=== PATIENT | female | born 1935 | race Caucasian/White ===

== ENCOUNTER 2016-06-14 09:41 | Emergency (ER) | payer MEDICARE, OTHER ==
--- NOTE | 2016-06-14 10:55 | ER Document Report ---
ED Skin Rash/Insect Bite/Abscs - General Chief Complaint: Skin Problem Stated Complaint: POSSIBLE ABSCESS RIGHT FINGER Information source: Patient Notes: 80-year-old female who presents today with the onset around 2-3 days ago of noting some redness to the dorsal aspect of the left index finger with a small circular "blister" present. She also believe she has some redness and irritation to her left back. Patient denies any pain, nausea, vomiting, fevers , congestion, recent illness, or other review of systems. Patient states she does have an "immune deficiency" that she receives monthly intravenous immunoglobulin for in [place]. She states she does not know what this immunodeficiency is. She also has a history of high blood pressure, diabetes, and cardiac stents. Patient denies any change or new medications. She denies a history of skin disorders. TRAVEL OUTSIDE OF THE [place] IN LAST 30 DAYS: No - HPI Patient complains to provider of: Skin rash/lesion Onset: Other - See above Onset/Duration: Gradual Quality of pain: No pain Severity: Mild Pain Level: Denies Skin Character: Other - See above Quality of rash: No: Itchy, Painful, Burning Identify cause: No Similar symptoms previously: No Recently seen / treated by doctor: No - Related Data Allergies/Adverse Reactions: codeine [Codeine] Allergy (Verified 06/14/16 09:47) Penicillins Allergy (Verified 06/14/16 09:47) Past Medical History - General Information source: Patient - Social History Smoking Status: Never Smoker Chew tobacco use (# tins/day): No Frequency of alcohol use: None Drug Abuse: None Family History: Arthritis, CAD, CVA, DM, Hyperlipidemia, Hypertension, Malignancy - Past Medical History Cardiac Medical History: Reports: Hx Coronary Artery Disease, Hx Hypercholesterolemia, Hx Hypertension Pulmonary Medical History: Reports: Hx Bronchitis, Hx Pneumonia Neurological Medical History: Reports: Hx Migraine Endocrine Medical History: Reports: Hx Diabetes Mellitus Type 2 Renal/ Medical History: Denies: Hx Peritoneal Dialysis Malignancy Medical History: Denies: Hx Leukemia GI Medical History: Reports: Hx Gastroesophageal Reflux Disease. Denies: Hx Hepatitis, Hx Hiatal Hernia, Hx Ulcer Musculoskeltal Medical History: Denies Hx Arthritis, Reports Hx Musculoskeletal Deformity, Reports Hx Musculoskeletal Trauma Psychiatric Medical History: Reports: Hx Depression Infectious Medical History: Denies: Hx Hepatitis, Hx HIV Past Surgical History: Reports: Hx Appendectomy, Hx Cardiac Catheterization, Hx Cholecystectomy, Hx Coronary Stent - 2 stents mar 2012, Hx Hysterectomy, Hx Open Heart Surgery - STENTS, Hx Orthopedic Surgery - bilat knee replacement, back surgery 6, Hx Tonsillectomy. Denies: Hx Mastectomy, Hx Pacemaker - Immunizations Hx Diphtheria, Pertussis, Tetanus Vaccination: No Hx Pneumococcal Vaccination: 02/24/11 Review of Systems - Review of Systems Constitutional: denies: Fever Cardiovascular: denies: Chest pain Respiratory: denies: Short of breath Gastrointestinal: denies: Diarrhea, Vomiting Musculoskeletal: denies: Leg swelling Neurological/Psychological: Other - no slurred speech -: Yes All other systems reviewed and negative Physical Exam - Vital signs Vitals: Temp Pulse Resp BP Pulse Ox 97.7 F 64 18 170/58 H 99 06/14/16 09:48 06/14/16 09:48 06/14/16 09:48 06/14/16 09:48 06/14/16 09:48 Notes: Reviewed vital signs and nursing note as charted by RN. CONSTITUTIONAL: Alert and oriented and responds appropriately to questions. Well -appearing; well-nourished EYES: PERRL; Conjunctivae clear, sclerae non-icteric ENT: Normal nose; no rhinorrhea; moist mucous membranes; lips, tongue, and pharynx without lesions noted NECK: Supple without meningismus; non-tender; no cervical lymphadenopathy, no masses CARD: Regular rate and rhythm; no murmurs, no clicks, no rubs, no gallops; symmetric distal pulses RESP: Normal chest excursion without splinting or tachypnea; breath sounds clear and equal bilaterally; no wheezes, no rhonchi, no rales ABD/GI: Normal bowel sounds; non-distended; soft, non-tender BACK: The back appears normal and is non-tender to palpation, there is no CVA tenderness EXT: Normal ROM in all joints; non-tender to palpation; no cyanosis, no effusions, no edema SKIN: Patient has some erythema with a 1.5 x 1 cm red nontender nonfluctuant blister like lesion to the dorsum of the index finger of the right hand. Full range of motion. Neurovascularly intact distally. Patient has a small circular patchy nontender area of erythema to the left lateral back. NEURO: Moves all extremities equally; Motor and sensory function intact PSYCH: The patient's mood and manner are appropriate. Grooming and personal hygiene are appropriate. Course - Re-evaluation Re-evalutation: 06/14/16 10:55 Given the history and physical examination, I will obtain a CBC, chemistry, and attempt to touch base with the patient's primary care physician. Given that the blister to the finger is nontender and nonfluctuant I do not believe incision and drainage is indicated at this time. After laboratory work has been returned, I will attempt to call the patient's oncologist who provides the intravenous immunoglobulin, Dr. Chavez to find out what the patient's immunodeficiency is exactly, to help and my disposition as well as to increase the patient's self awareness of her medical conditions. 06/14/16 10:57 Reviewing the patient's history on previous examinations it appears the patient has a history of stage III chronic kidney disease, thrombocytopenia, and does take Plavix. 06/14/16 12:35 Labs as recorded. White count, platelets, calcium, and creatinine appear to be around baseline. 06/14/16 12:48 I called and spoken directly to Dr. Man the oncologist financial services consultant for Dr. Chavez. I've explained the full history and physical examination, laboratory values, white blood cell count, glucose, calcium, creatinine, and platelets. 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 He states that the patient received last immunoglobulin on May 20. He states that, and variable immunodeficiency can at times cause possible rash. He is advised me to start the patient on Keflex, provide strict return precautions, have the patient follow-up with the oncology service and if there is no resolution or worsening of the rash, they will refer the patient to dermatology. No change in exam. I have provided a short 500 mL bolus of intravenous fluid and we'll discharge the patient home with strict return precautions, Keflex, and follow-up with her oncologist and primary care physician. 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 Please write this down and keep this with you to help future visits. Please take the antibiotics as prescribed. Please come back immediately with any fevers, worsening rash, pain, vomiting, or any other acute problems. Please make sure that you follow-up with your oncologist for reassessment next week as we have discussed and have helped expedite for you. Prescriptions: Cephalexin Monohydrate [Keflex 500 mg Capsule] 500 mg PO TID #30 capsule
[2016-06-14 11:03] LABS: ABSOLUTE EOSINOPHILS # (AUTO) 0.2 10^3/uL (0.0-0.6); ABSOLUTE LYMPHOCYTES (AUTO) 0.6 10^3/uL (0.5-4.7); ABSOLUTE MONOCYTES (AUTO) 0.4 10^3/uL (0.1-1.4); ABSOLUTE NEUT (AUTO) 2.2 10^3/uL (1.7-8.2); BASOPHILS % (AUTO) 1.3 % (0-2); EOSINOPHILS % (AUTO) 4.9 % (0-6); HEMATOCRIT 34.8 % (36.0-47.0); HEMOGLOBIN 11.8 g/dL (12.0-15.5); HGB HCT DIFFERENCE 0.6; LYMPHOCYTES % (AUTO) 17.6 % (13-45); MEAN CORPUSCULAR HEMOGLOBIN 30.8 pg (27.0-33.4); MEAN CORPUSCULAR HGB CONC 33.8 g/dL (32.0-36.0); MEAN CORPUSCULAR VOLUME 91 fl (80-97); MONOCYTES % (AUTO) 11.7 % (3-13); RED BLOOD COUNT 3.82 10^6/uL (3.72-5.28); RED CELL DISTRIBUTION WIDTH 13.5 % (11.5-14.0); SEGMENTED NEUTROPHILS % (AUTO) 64.5 % (42-78); WHITE BLOOD COUNT 3.4 10^3/uL (4.0-10.5)
[2016-06-14 11:19] LABS: ANION GAP 13 (5-19); BLOOD UREA NITROGEN 26 mg/dL (7-20); CALCIUM 10.3 mg/dL (8.4-10.2); CARBON DIOXIDE 21 mmol/L (22-30); CHLORIDE 110 mmol/L (98-107); CREATININE RESULT 1.42 mg/dL (0.52-1.25); GLUCOSE 268 mg/dL (75-110); POTASSIUM 4.6 mmol/L (3.6-5.0); SODIUM 143.6 mmol/L (137-145)
[2016-06-14] MEDS ORDERED: NORMAL SALINE 1000 ML 1,000 ML IV ONE (12:40)
[2016-06-14] MEDS ORDERED: CEPHALEXIN 500 MG CAPSULE PO ONE (12:58)
[2016-06-14 14:57] VITALS: BP 174/61
== END 2016-06-14 14:57 | disposition home or self-care (01) ==
LOC: ER 09:41
DX: R21 Rash and other nonspecific skin eruption (principal); I25.10 Atherosclerotic heart disease of native coronary artery without angina pectoris; E78.00 Pure hypercholesterolemia, unspecified; I10 Essential (primary) hypertension; E11.9 Type 2 diabetes mellitus without complications; K21.9 Gastro-esophageal reflux disease without esophagitis; Z88.6 Allergy status to analgesic agent; Z88.0 Allergy status to penicillin; Z90.49 Acquired absence of other specified parts of digestive tract; Z90.710 Acquired absence of both cervix and uterus; Z96.653 Presence of artificial knee joint, bilateral
CPT/HCPCS: 99283; 36415; 85025; 80048; A9270; J7030

== ENCOUNTER 2016-06-26 10:12 | Observation (INO) | payer MEDICARE, OTHER ==
[2016-06-26] MEDS ORDERED: NORMAL SALINE 1000 ML 500 ML IV ONE (10:27)
--- NOTE | 2016-06-26 10:46 | ER Document Report ---
ED Medical Screen (RME) - General Chief Complaint: Weakness Stated Complaint: WEAKNESS TRAVEL OUTSIDE OF THE [place] IN LAST 30 DAYS: No - HPI Patient complains to provider of: weakness Notes: 06/26/16 10:45 Patient drove herself to the ER today complaining of generalized weakness feeling shaky along with multiple other complaints. Patient states she did not take anything for blood pressure medications nor did she checked her sugar this morning. Patient states symptoms all started as morning upon awaking. Concern after she ate cereal and it did not resolve. Patient ambulatory here in our knee. 06/26/16 10:46 - Related Data Allergies/Adverse Reactions: codeine [Codeine] Allergy (Verified 06/26/16 10:16) Penicillins Allergy (Verified 06/26/16 10:16) Past Medical History - Past Medical History Cardiac Medical History: Reports: Hx Coronary Artery Disease, Hx Hypercholesterolemia, Hx Hypertension Pulmonary Medical History: Reports: Hx Bronchitis, Hx Pneumonia Neurological Medical History: Reports: Hx Migraine Endocrine Medical History: Reports: Hx Diabetes Mellitus Type 2 Renal/ Medical History: Denies: Hx Peritoneal Dialysis Malignancy Medical History: Denies: Hx Leukemia GI Medical History: Reports: Hx Gastroesophageal Reflux Disease. Denies: Hx Hepatitis, Hx Hiatal Hernia, Hx Ulcer Musculoskeltal Medical History: Denies Hx Arthritis, Reports Hx Musculoskeletal Deformity, Reports Hx Musculoskeletal Trauma Psychiatric Medical History: Reports: Hx Depression Infectious Medical History: Denies: Hx Hepatitis, Hx HIV Past Surgical History: Reports: Hx Appendectomy, Hx Cardiac Catheterization, Hx Cholecystectomy, Hx Coronary Stent - 2 stents mar 2012, Hx Hysterectomy, Hx Open Heart Surgery - STENTS, Hx Orthopedic Surgery - bilat knee replacement, back surgery 6, Hx Tonsillectomy. Denies: Hx Mastectomy, Hx Pacemaker - Immunizations Hx Diphtheria, Pertussis, Tetanus Vaccination: No Review of Systems - Review of Systems Constitutional: Weakness Physical Exam - Vital signs Vitals: Temp Pulse Resp BP Pulse Ox 97.6 F 71 20 219/72 H 97 06/26/16 10:18 06/26/16 10:18 06/26/16 10:18 06/26/16 10:18 06/26/16 10:18 - Cardiovascular Rhythm: Regular Heart sounds: Normal auscultation Course - Vital Signs Vital signs: Temp Pulse Resp BP Pulse Ox 97.6 F 71 20 219/72 H 97 06/26/16 10:18 06/26/16 10:18 06/26/16 10:18 06/26/16 10:18 06/26/16 10:18
[2016-06-26 11:05] LABS: ABSOLUTE EOSINOPHILS # (AUTO) 0.1 10^3/uL (0.0-0.6); ABSOLUTE LYMPHOCYTES (AUTO) 0.8 10^3/uL (0.5-4.7); ABSOLUTE MONOCYTES (AUTO) 0.3 10^3/uL (0.1-1.4); ABSOLUTE NEUT (AUTO) 2.1 10^3/uL (1.7-8.2); BASOPHILS % (AUTO) 0.8 % (0-2); EOSINOPHILS % (AUTO) 2.9 % (0-6); HEMATOCRIT 35.4 % (36.0-47.0); HEMOGLOBIN 11.9 g/dL (12.0-15.5); HGB HCT DIFFERENCE 0.3; LYMPHOCYTES % (AUTO) 23.2 % (13-45); MEAN CORPUSCULAR HEMOGLOBIN 30.7 pg (27.0-33.4); MEAN CORPUSCULAR HGB CONC 33.5 g/dL (32.0-36.0); MEAN CORPUSCULAR VOLUME 92 fl (80-97); MONOCYTES % (AUTO) 10.4 % (3-13); RED BLOOD COUNT 3.87 10^6/uL (3.72-5.28); RED CELL DISTRIBUTION WIDTH 13.2 % (11.5-14.0); SEGMENTED NEUTROPHILS % (AUTO) 62.7 % (42-78); WHITE BLOOD COUNT 3.3 10^3/uL (4.0-10.5)
[2016-06-26 11:28] LABS: PROTHROMBIN TIME 12.8 SEC (11.4-15.4)
[2016-06-26 11:28] LABS: APPEARANCE,URINE CLEAR; BILIRUBIN,URINE NEGATIVE (NEGATIVE); GLUCOSE, URINE >=500 mg/dL (NEGATIVE); KETONES,URINE NEGATIVE (NEGATIVE); LEUKOCYTE ESTERASE,URINE NEGATIVE (NEGATIVE); NITRITE,URINE NEGATIVE (NEGATIVE); PROTEIN,URINE 100 mg/dL (NEGATIVE); URINE SPECIFIC GRAVITY 1.013; UROBILINOGEN,URINE NEGATIVE mg/dL (<2.0)
[2016-06-26 11:29] LABS: ALANINE AMINOTRANSFERASE 30 U/L (9-52); ALBUMIN 4.1 g/dL (3.5-5.0); ALKALINE PHOSPHATASE 147 U/L (38-126); ANION GAP 15 (5-19); ASPARTATE AMINO TRANSFERASE 26 U/L (14-36); BILIRUBIN,DIRECT 0.3 mg/dL (0.0-0.4); BILIRUBIN,TOTAL 0.5 mg/dL (0.2-1.3); BLOOD UREA NITROGEN 31 mg/dL (7-20); CALCIUM 10.6 mg/dL (8.4-10.2); CARBON DIOXIDE 23 mmol/L (22-30); CHLORIDE 105 mmol/L (98-107); CREATINE KINASE 64 U/L (30-135); CREATININE RESULT 1.09 mg/dL (0.52-1.25); GLUCOSE 379 mg/dL (75-110); MAGNESIUM 1.3 mg/dL (1.6-2.3); POTASSIUM 4.6 mmol/L (3.6-5.0); SODIUM 142.5 mmol/L (137-145); TOTAL PROTEIN 7.1 g/dL (6.3-8.2)
[2016-06-26 11:41] LABS: CREATINE KINASE MB 0.81 ng/mL (<4.55)
[2016-06-26 11:43] LABS: TROPONIN I < 0.012 ng/mL
[2016-06-26] MEDS ORDERED: MAGNESIUM OXIDE 400 MG TABLET PO ONE (11:54)
--- NOTE | 2016-06-26 11:56 | ER Document Report ---
ED Cardiac - General Mode of Arrival: Ambulatory Information source: Patient TRAVEL OUTSIDE OF THE [place] 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 Patient reports that she is having no pain currently. The pain is not exacerbated with movement. Patient additionally complains of shortness of breath and nausea (started at 0800 and has since passed), but denies cough or fever. Patient denies being around anyone sick. Patient took her medication this morning. 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 Nixon at [facility]. Patient reports no recent changes in her medication. As per old records, patient has Common Variable Immune Deficiency and receives IVIG treatment every month by Dr. Wilder at [facility]. (DANA VELEZ) - Related Data Allergies/Adverse Reactions: codeine [Codeine] Allergy (Verified 06/26/16 10:16) Penicillins Allergy (Verified 06/26/16 10:16) Home Medications: Current Home Medications Acetaminophen [Tylenol Arthritis] 1,300 mg PO TID 06/26/16 [History] Amlodipine Besylate [Norvasc 5 mg Tablet] 5 mg PO QAM 06/26/16 [History] Aspirin [Ecotrin 81 mg EC Tablet] 81 mg PO QAM 06/26/16 [History] Atenolol [Tenormin] 100 mg PO QAM 06/26/16 [History] Atorvastatin Calcium [Lipitor 40 mg Tablet] 40 mg PO QHS 06/26/16 [History] Clopidogrel Bisulfate [Plavix 75 mg Tablet] 75 mg PO QAM 06/26/16 [History] Fenofibrate Nanocrystallized [Fenofibrate] 145 mg PO QHS 06/26/16 [History] Glimepiride [Amaryl 4 mg Tablet] 4 mg PO QAM 06/26/16 [History] Hydrochlorothiazide [Hydrodiuril 25 mg Tablet] 25 mg PO QAM 06/26/16 [History] Lisinopril [Prinivil] 20 mg PO QAM 06/26/16 [History] Nitroglycerin [Nitrostat] 0.4 mg SL Q5MP PRN 06/26/16 [History] Pantoprazole Sodium [Protonix] 40 mg PO QAM 06/26/16 [History] Past Medical History - General Information source: Patient, [facility] - Social History Smoking Status: Never Smoker Family History: Arthritis, CAD, CVA, DM, Hyperlipidemia, Hypertension, Malignancy Patient has suicidal ideation: No Patient has homicidal ideation: No - Past Medical History Cardiac Medical History: Reports: Hx Coronary Artery Disease, Hx Hypercholesterolemia, Hx Hypertension Pulmonary Medical History: Reports: Hx Bronchitis, Hx Pneumonia Neurological Medical History: Reports: Hx Migraine Endocrine Medical History: Reports: Hx Diabetes Mellitus Type 2 - diet controlled Renal/ Medical History: Denies: Hx Peritoneal Dialysis Malignancy Medical History: Denies: Hx Leukemia GI Medical History: Reports: Hx Gastroesophageal Reflux Disease. Denies: Hx Hepatitis, Hx Hiatal Hernia, Hx Ulcer Musculoskeltal Medical History: Denies Hx Arthritis, Reports Hx Musculoskeletal Deformity, Reports Hx Musculoskeletal Trauma Psychiatric Medical History: Reports: Hx Depression Past Surgical History: Reports: Hx Appendectomy, Hx Cardiac Catheterization - stent x 2, Hx Cholecystectomy, Hx Coronary Stent - 2 stents mar 2012, Hx Hysterectomy, Hx Open Heart Surgery - STENTS, Hx Orthopedic Surgery - bilat knee replacement, back surgery 6, Hx Tonsillectomy - Immunizations Hx Diphtheria, Pertussis, Tetanus Vaccination: No Hx Pneumococcal Vaccination: 02/24/11 <DANA VELEZ - Last Filed: 06/26/16 13:05> <PRISCILLA PADGETT - Last Filed: 06/26/16 18:18> - Medical History Notes: History of Common Variable Immune Deficiency (DANA VELEZ) Review of Systems - Review of Systems Constitutional: No symptoms reported. denies: Fever EENT: No symptoms reported Cardiovascular: See HPI, Chest pain - left chest that radiates up left neck Respiratory: See HPI, Short of breath. denies: Cough Gastrointestinal: See HPI, Nausea - this morning, not currently Genitourinary: No symptoms reported Female Genitourinary: No symptoms reported Musculoskeletal: No symptoms reported Skin: No symptoms reported Hematologic/Lymphatic: No symptoms reported Neurological/Psychological: No symptoms reported -: Yes All other systems reviewed and negative <DANA VELEZ - Last Filed: 06/26/16 13:05> Physical Exam - Vital signs Interpretation: Hypertensive - General General appearance: Alert In distress: None - HEENT Head: Normocephalic, Atraumatic Eyes: Normal Extraocular movements intact: Yes Pupils: PERRL - Respiratory Respiratory status: No respiratory distress Breath sounds: Normal - Cardiovascular Rhythm: Regular Heart sounds: Normal auscultation - Abdominal Inspection: Normal Distension: No distension Tenderness: Nontender - Back Back: Normal - Extremities General upper extremity: Normal inspection, Normal ROM General lower extremity: Normal inspection, Normal ROM - Neurological Neuro grossly intact: Yes Cognition: Normal Orientation: AAOx4 [place] Coma Scale Eye Opening: Spontaneous [place] Coma Scale Verbal: Oriented [place] Coma Scale Motor: Obeys Commands Maria Luisa Coma Scale Total: 15 Speech: Normal - Psychological Associated symptoms: Normal affect, Normal mood - Skin Skin Temperature: Warm Skin Moisture: Dry Skin Color: Normal <ROSIEDANA - Last Filed: 06/26/16 13:05> Course - Laboratory Result Diagrams: 06/26/16 10:40 06/26/16 10:40 - Consults Dr. Richard Time consulted: 11:51 Alon Ventura Time consulted: 11:53 <VELEZDANA - Last Filed: 06/26/16 13:05> - Laboratory Result Diagrams: 06/26/16 10:40 06/26/16 10:40 <PRISCILLA PADGETT - Last Filed: 06/26/16 18:18> - Re-evaluation Re-evalutation: 06/26/16 Patient is an 80-year-old female with a history of coronary artery disease who comes in with some chest pain and radiation to her neck and arm that has since resolved. Troponin is negative. EKG with no acute changes. Patient will be referred to the hospitalist service for observation. Understands and agrees with this plan. Has taken aspirin today. Stable time of admission. (PRISCILLA PADGETT) - Vital Signs Vital signs: Temp Pulse Resp BP Pulse Ox 97.5 F 64 20 184/63 H 100 06/26/16 15:59 06/26/16 15:59 06/26/16 15:59 06/26/16 15:59 06/26/16 15:59 - Laboratory Laboratory results interpreted by me: 06/26/16 06/26/16 06/26/16 10:35 10:40 10:40 WBC 3.3 L Hgb 11.9 L Hct 35.4 L Plt Count 87 L BUN 31 H Est GFR ( Amer) 58 L Est GFR (Non-Af Amer) 48 L Glucose 379 H POC Glucose 364 H Calcium 10.6 H Magnesium 1.3 L Alkaline Phosphatase 147 H Urine Protein Urine Glucose (UA) 06/26/16 11:01 WBC Hgb Hct Plt Count BUN Est GFR ( Amer) Est GFR (Non-Af Amer) Glucose POC Glucose Calcium Magnesium Alkaline Phosphatase Urine Protein 100 H Urine Glucose (UA) >=500 H - Consults Dr. Richard Reason for consultation: 06/26/16 11:51 Patient was discussed with Dr. Richard and told to contact Alon Ventura. (DANA VELEZ) Alon Ventura Reason for consultation: 06/26/16 11:53 Patient was discussed with Alon Ventura and agrees to admit the patient to telemetry observation. (DANA VELEZ) Discharge <DANA VELEZ - Last Filed: 06/26/16 13:05> - Discharge Admitting Provider: Marcie Ventura Unit Admitted: Telemetry <PRISCILLA PADGETT - Last Filed: 06/26/16 18:18> - Discharge Clinical Impression: Chest pain Qualifiers: Chest pain type: unspecified Qualified Code(s): R07.9 - Chest pain, unspecified Condition: Stable Disposition: ADMITTED OBSERVATION Scribe Attestation: 06/26/16 18:18 I personally performed the services described in the documentation, reviewed and edited the documentation which was dictated to the scribe in my presence, and it accurately records my words and actions. (PRISCILLA PDAGETT) Scribe Documentation - Scribe Written by Scribe:: Yenifer Briceño, 06/26/2016 1305 acting as scribe for :: Andrew <DANA VELEZ - Last Filed: 06/26/16 13:05>
[2016-06-26] MEDS ORDERED: DEXTROSE 40% GEL 15 GM TUBE PO PRN ×2 (12:17)
[2016-06-26] MEDS ORDERED: GLUCAGON,HUMAN RECOMB 1 MG INJ IM PRN (12:17)
[2016-06-26] MEDS ORDERED: DEXTROSE 50%-WATER 25 GM/50 ML DISP.SYRIN IV PRN ×2 (12:17)
[2016-06-26] MEDS ORDERED: NITROGLYCERIN 0.4 MG/TAB 25 TAB/BOTTLE SL PRN (12:20)
[2016-06-26] MEDS ORDERED: (PENDING PHARMACY ID) (Lisinopril [Prinivil 20 Mg Tablet] 20 MG) PO SCH (12:30)
[2016-06-26] MEDS ORDERED: ATENOLOL 100 MG PO SCH (12:30)
[2016-06-26] MEDS ORDERED: AMLODIPINE BESYLATE 5 MG TABLET PO ONE (13:00)
--- NOTE | 2016-06-26 13:16 | PDOC H&P ---
History of Present Illness Admission Date/PCP: 06/26/2016 [facility] Outpatient kaiawhina: Dr. Jaya Nixon Patient complains of: Chest discomfort History of Present Illness: TROY COOK is a 80 year old female with a past medical history of coronary artery disease that is well known to the hospitalist service. The patient is followed by Dr. Jaya Nixon cardiology [facility]. The patient drove herself to the emergency department today complaining of generalized weakness feeling shaky along with multiple other complaints. Patient states she did not take anything for blood pressure medications nor did she checked her sugar this morning. Patient states symptoms all started as morning upon awaking. Concern after she ate cereal and it did not resolve. Patient ambulatory here in the ED. the patient notes anxiety around her 's from myocardial infarction 5 years ago. The patient reiterates that she lives alone. MEDICATIONS: The medications listed in this document may have been auto- populated from previous contact and may not been verified or reconciled. This may not be an accurate reflection of the patient's home medication(s); however, authors are unable to edit or delete the medications listed in this document as "home medications". Past Medical History Cardiac Medical History: Reports: Coronary Artery Disease, Hyperlipidema, Hypertension Pulmonary Medical History: Reports: Bronchitis, Pneumonia Neurological Medical History: Reports: Migraine Endocrine Medical History: Reports: Diabetes Mellitus Type 2 - diet controlled GI Medical History: Reports: Gastroesophageal Reflux Disease Psychiatric Medical History: Reports: Depression Hematology: Reports: Anemia Past Surgical History Past Surgical History: Reports: Appendectomy, Cardiac Catheterization - stent x 2, Cholecystectomy, Coronary Stent - 2 stents mar 2012, Hysterectomy, Orthopedic Surgery - bilat knee replacement, back surgery 6, Tonsillectomy Social History Information Source: Patient Occupation: Retrieved Lives with: Alone Smoking Status: Never Smoker Frequency of Alcohol Use: None Hx Recreational Drug Use: No Drugs: None Hx Prescription Drug Abuse: No - Advance Directive Resuscitation Status: Full Code Surrogate healthcare decision maker:: Son Family History Family History: Arthritis, CAD, CVA, DM, Hyperlipidemia, Hypertension, Malignancy Parental Family History Reviewed: Yes Children Family History Reviewed: Yes Sibling(s) Family History Reviewed.: Yes Medication/Allergy Allergies/Adverse Reactions: codeine [Codeine] Allergy (Verified 06/26/16 10:16) Penicillins Allergy (Verified 06/26/16 10:16) Physical Exam Vital Signs: Temp Pulse Resp BP Pulse Ox 97.6 F 71 20 219/72 H 98 06/26/16 10:18 06/26/16 10:18 06/26/16 10:18 06/26/16 10:18 06/26/16 11:12 Intake & Output 06/24/16 06/25/16 06/26/16 23:59 23:59 23:59 Weight 81.6 kg General appearance: PRESENT: no acute distress, cooperative, well-developed, well-nourished Head exam: PRESENT: atraumatic, normocephalic Eye exam: PRESENT: conjunctiva pink, EOMI, PERRLA. ABSENT: scleral icterus Ear exam: PRESENT: normal external ear exam Mouth exam: PRESENT: moist, tongue midline Neck exam: ABSENT: carotid bruit, JVD, lymphadenopathy, thyromegaly Respiratory exam: PRESENT: clear to auscultation kiko, symmetrical, unlabored. ABSENT: rales, rhonchi, tachypnea, wheezes Cardiovascular exam: PRESENT: RRR. ABSENT: diastolic murmur, rubs, systolic murmur Pulses: PRESENT: normal dorsalis pedis pul Vascular exam: PRESENT: normal capillary refill GI/Abdominal exam: PRESENT: normal bowel sounds, soft. ABSENT: distended, guarding, mass, organolmegaly, rebound, tenderness Rectal exam: PRESENT: deferred Extremities exam: PRESENT: full ROM. ABSENT: calf tenderness, clubbing, pedal edema Neurological exam: PRESENT: alert, awake, oriented to person, oriented to place , oriented to time, oriented to situation, CN II-XII grossly intact. ABSENT: motor sensory deficit Psychiatric exam: PRESENT: appropriate affect, normal mood. ABSENT: homicidal ideation, suicidal ideation Skin exam: PRESENT: dry, intact, warm. ABSENT: cyanosis, rash Results Laboratory Results: 06/26/16 10:40 06/26/16 10:40 06/26/16 06/26/16 06/26/16 10:40 10:40 10:40 WBC 3.3 L RBC 3.87 Hgb 11.9 L Hct 35.4 L MCV 92 MCH 30.7 MCHC 33.5 RDW 13.2 Plt Count 87 L Seg Neutrophils % 62.7 Lymphocytes % 23.2 Monocytes % 10.4 Eosinophils % 2.9 Basophils % 0.8 Absolute Neutrophils 2.1 Absolute Lymphocytes 0.8 Absolute Monocytes 0.3 Absolute Eosinophils 0.1 Absolute Basophils 0.0 Sodium 142.5 Potassium 4.6 Chloride 105 Carbon Dioxide 23 Anion Gap 15 BUN 31 H Creatinine 1.09 Est GFR ( Amer) 58 L Est GFR (Non-Af Amer) 48 L Glucose 379 H Calcium 10.6 H Magnesium 1.3 L Total Bilirubin 0.5 AST 26 ALT 30 Alkaline Phosphatase 147 H Total Protein 7.1 Albumin 4.1 TSH 1.59 Urine Color Urine Appearance Urine pH Ur Specific [place] Urine Protein Urine Glucose (UA) Urine Ketones Urine Blood Urine Nitrite Ur Leukocyte Esterase Urine WBC (Auto) Urine RBC (Auto) 06/26/16 11:01 WBC RBC Hgb Hct MCV MCH MCHC RDW Plt Count Seg Neutrophils % Lymphocytes % Monocytes % Eosinophils % Basophils % Absolute Neutrophils Absolute Lymphocytes Absolute Monocytes Absolute Eosinophils Absolute Basophils Sodium Potassium Chloride Carbon Dioxide Anion Gap BUN Creatinine Est GFR ( Amer) Est GFR (Non-Af Amer) Glucose Calcium Magnesium Total Bilirubin AST ALT Alkaline Phosphatase Total Protein Albumin TSH Urine Color STRAW Urine Appearance CLEAR Urine pH 6.0 Ur Specific [place] 1.013 Urine Protein 100 H Urine Glucose (UA) >=500 H Urine Ketones NEGATIVE Urine Blood NEGATIVE Urine Nitrite NEGATIVE Ur Leukocyte Esterase NEGATIVE Urine WBC (Auto) 0 Urine RBC (Auto) 0 06/26/16 06/26/16 10:40 10:40 Creatine Kinase 64 CK-MB (CK-2) 0.81 Troponin I < 0.012 Impressions: Chest X-Ray 06/26/16 10:26 IMPRESSION: No acute cardiopulmonary findings. Head CT 06/26/16 10:27 IMPRESSION: No acute or suspicious findings. Assessment & Plan - Diagnosis (1) Chest pain Qualifiers: Chest pain type: unspecified Qualified Code(s): R07.9 - Chest pain, unspecified Is this a current diagnosis for this admission?: YesPlan: Will observe the patient continues telemetry unit, obtain serial cardiac enzymes , repeat EKG, and obtain lipid panel in the a.m. will consult with the patient' s outpatient kaiawhina. (2) Coronary artery disease Qualifiers: Coronary Disease-Associated Artery/Lesion type: [place] artery [place] vs. transplanted heart: [place] heart Associated angina: without angina Qualified Code(s): I25.10 - Atherosclerotic heart disease of [place] coronary artery without angina pectoris Is this a current diagnosis for this admission?: YesPlan: Will continue home medications. (3) Hypertension Qualifiers: Hypertension type: unspecified secondary hypertension Qualified Code(s) : I15.9 - Secondary hypertension, unspecified; I15 - Secondary hypertension Is this a current diagnosis for this admission?: YesPlan: Pressures are significantly elevated will resume the patient's home blood pressure medications most likely just an element of rebounding. (4) Diabetes mellitus type 2 in nonobese Is this a current diagnosis for this admission?: YesPlan: Will resume home medications plus sliding scale coverage (5) CKD (chronic kidney disease), stage III Is this a current diagnosis for this admission?: Yes (6) Stented coronary artery Is this a current diagnosis for this admission?: Yes (7) Thrombocytopenia Is this a current diagnosis for this admission?: Yes (8) Generalized anxiety disorder Is this a current diagnosis for this admission?: Yes (9) Hyperlipidemia Qualifiers: Hyperlipidemia type: pure hypercholesterolemia Qualified Code(s): E78.00 - Pure hypercholesterolemia, unspecified; E78.0 - Pure hypercholesterolemia Is this a current diagnosis for this admission?: Yes - Time Time Spent: 50 to 70 Minutes Medications reviewed and adjusted accordingly: Yes Anticipated discharge: Home Within: within 24 hours Disposition: The patient is a full code. Pending patient's symptomatology and diagnostic findings will reevaluate in the a.m.
[2016-06-26] MEDS ORDERED: HYDROCHLOROTHIAZIDE 25 MG TABLET PO ONE (13:30)
[2016-06-26] MEDS: HEPARIN SOD (PORCINE) 5,000 UNIT/ML 1 ML SYRINGE SUBCUT SCH ×2 (14:50→22:01)
[2016-06-26] MEDS: INSULIN LISPRO 100 UNIT/ML 3 ML VIAL SUBCUT PRN (16:39)
[2016-06-26] MEDS ORDERED: ZOLPIDEM TARTRATE 5 MG TABLET PO PRN (18:54)
--- NOTE | 2016-06-26 21:09 | EKG REPORT ---
SEVERITY:- NORMAL ECG - SINUS RHYTHM : Confirmed by: Tressa Cantrell MD 26-Jun-2016 21:09:18
[2016-06-26] MEDS ORDERED: (PENDING PHARMACY ID) (Fenofibrate [Fenofibrate] 145 MG) PO SCH (22:00)
[2016-06-26] MEDS ORDERED: ACETAMINOPHEN 325 MG TABLET PO PRN (22:00)
[2016-06-26] MEDS ORDERED: FENOFIBRATE NANOCRYSTALLIZED 145 MG TABLET PO SCH (22:00)
[2016-06-26] MEDS ORDERED: ATORVASTATIN CALCIUM 40 MG TABLET PO SCH (22:00)
[2016-06-26 23:17] VITALS: BP 159/66
[2016-06-27] MEDS: HEPARIN SOD (PORCINE) 5,000 UNIT/ML 1 ML SYRINGE SUBCUT SCH (05:01)
[2016-06-27 05:10] LABS: CHOLESTEROL 145.57 mg/dL (0-200); Direct HDL 40 mg/dL (>40); TRIGLYCERIDES 307 mg/dL (<150)
[2016-06-27 05:21] LABS: DIRECT LDL 57 mg/dL (<100)
[2016-06-27 05:40] LABS: VLDL CHOLESTEROL 61.4 mg/dL (10-31)
[2016-06-27] MEDS: INSULIN LISPRO 100 UNIT/ML 3 ML VIAL SUBCUT PRN ×2 (07:47→07:51)
[2016-06-27] MEDS ORDERED: LANSOPRAZOLE 30 MG TAB.RAP.DR PO SCH (08:00)
[2016-06-27] MEDS ORDERED: GLIMEPIRIDE 1 MG TABLET PO SCH (08:00)
[2016-06-27] MEDS ORDERED: PANTOPRAZOLE SODIUM PO SCH (08:00)
[2016-06-27] MEDS ORDERED: GLIMEPIRIDE 4 MG TABLET PO SCH ×2 (08:00→16:00)
[2016-06-27] MEDS ORDERED: AMLODIPINE BESYLATE 5 MG TABLET PO SCH (10:00)
[2016-06-27] MEDS ORDERED: ATENOLOL 50 MG TABLET PO SCH (10:00)
[2016-06-27] MEDS ORDERED: CLOPIDOGREL BISULFATE 75 MG TABLET PO SCH (10:00)
[2016-06-27] MEDS ORDERED: HYDROCHLOROTHIAZIDE 25 MG TABLET PO SCH (10:00)
[2016-06-27] MEDS ORDERED: ASPIRIN 81 MG TABLET, CHEWABLE PO SCH (10:00)
[2016-06-27] MEDS ORDERED: LISINOPRIL 10 MG TABLET PO SCH (10:00)
--- NOTE | 2016-06-27 12:51 | EKG REPORT ---
SEVERITY:- ABNORMAL ECG - SINUS RHYTHM CONSIDER LEFT VENTRICULAR HYPERTROPHY BORDERLINE PROLONGED QT INTERVAL : Confirmed by: Tressa Cantrell MD 27-Jun-2016 12:50:24
--- NOTE | 2016-06-27 14:02 | PDOC DISCHARGE SUMMARY ---
General - Admit/Disc Date/PCP Admission Date/Primary Care Provider: 06/26/16 13:11 Outpatient pharmacy informatics specialist, Dr. Jaya Nixon Discharge Date: 06/27/16 - Discharge Diagnosis (1) Chest pain Is this a current diagnosis for this admission?: YesSummary: Secondary to #1 which is resolved (2) Coronary artery disease Is this a current diagnosis for this admission?: Yes (3) Generalized anxiety disorder Is this a current diagnosis for this admission?: Yes (4) Stented coronary artery Is this a current diagnosis for this admission?: Yes (5) Hypertension Is this a current diagnosis for this admission?: Yes (6) Diabetes mellitus type 2 in nonobese Is this a current diagnosis for this admission?: Yes (7) CKD (chronic kidney disease), stage III Is this a current diagnosis for this admission?: Yes (8) Thrombocytopenia Is this a current diagnosis for this admission?: Yes (9) Hyperlipidemia Is this a current diagnosis for this admission?: Yes - Additional Information Resuscitation Status: Full Code Discharge Diet: Cardiac Discharge Activity: Activity As Tolerated Home Medications: Acetaminophen [Tylenol Arthritis] 1,300 mg PO TID 06/26/16 Amlodipine Besylate [Norvasc 5 mg Tablet] 5 mg PO QAM 06/26/16 Aspirin [Ecotrin 81 mg EC Tablet] 81 mg PO QAM 06/26/16 Atenolol [Tenormin 100 mg Tablet] 100 mg PO QAM 06/26/16 Atorvastatin Calcium [Lipitor 40 mg Tablet] 40 mg PO QHS 06/26/16 Clopidogrel Bisulfate [Plavix 75 mg Tablet] 75 mg PO QAM 06/26/16 Fenofibrate Nanocrystallized [Fenofibrate] 145 mg PO QHS 06/26/16 Hydrochlorothiazide [Hydrodiuril 25 mg Tablet] 25 mg PO QAM 06/26/16 Lisinopril [Prinivil] 20 mg PO QAM 06/26/16 Nitroglycerin [Nitrostat] 0.4 mg SL Q5MP PRN 06/26/16 Pantoprazole Sodium [Protonix] 40 mg PO QAM 06/26/16 Glimepiride [Amaryl 4 mg Tablet] 4 mg PO BID #60 tablet 06/27/16 Nitroglycerin [Nitrostat 0.4 mg (1/150 Gr) Tabs 25/Bottle] 1 tab SL Q5MP PRN # 25 tab.subl 06/27/16 History of Present Illness Patient complains of: Chest pain History of Present Illness: TROY COOK is a 80 year old female with a past medical history of coronary artery disease with associated anxiety that is well known to the hospitalist service. The patient is followed by Dr. Jaya Nixon cardiology at [facility]. The patient drove herself to the emergency department today complaining of generalized weakness feeling shaky along with multiple other complaints including chest discomfort. Patient states she did not take anything for blood pressure medications nor did she checked her sugar this morning. Patient states symptoms all started as morning upon awaking. Concern after she ate cereal and it did not resolve. Patient ambulatory here in the ED. the patient notes anxiety around her 's from myocardial infarction 5 years ago. The patient reiterates that she lives alone. Hospital Course Hospital Course: The patient was observed in a continues telemetry unit, serial cardiac enzymes were obtained which were nonsuggestive. 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 Patient had no further replication of symptoms. Patient's goal of blood glucose was found to be elevated. The patient's glipizide was maximized during her stay and this will need to be followed up in outpatient basis. I called and spoke with the patient's pharmacy informatics specialist Dr. Nixon. It appears that the patient last had a stress test in 2015 and 2014 was catheterized medical management was recommended. After discussing the case recommendation has been made for the patient to follow-up with pharmacy informatics specialist within the next couple weeks. The patient has been cleared for discharge. Nitroglycerin when necessary was added. The patient has taken this in the past however she has not been taking it recently but opting to come to the emergency department for evaluation for chest discomforts. The patient was given a prescription for nitroglycerin. Physical Exam Vital Signs: Temp Pulse Resp BP Pulse Ox 97.7 F 64 18 159/66 H 99 06/27/16 10:43 06/27/16 10:43 06/27/16 10:43 06/27/16 10:43 06/27/16 10:43 Intake & Output 06/25/16 06/26/16 06/27/16 23:59 23:59 23:59 Intake Total 0 Balance 0 Weight 80.7 kg General appearance: PRESENT: no acute distress, cooperative, well-developed, well-nourished Head exam: PRESENT: atraumatic, normocephalic Eye exam: PRESENT: conjunctiva pink, EOMI, PERRLA. ABSENT: scleral icterus Ear exam: PRESENT: normal external ear exam Mouth exam: PRESENT: moist, tongue midline Neck exam: ABSENT: carotid bruit, JVD, lymphadenopathy, thyromegaly Respiratory exam: PRESENT: clear to auscultation kiko, symmetrical, unlabored. ABSENT: rales, rhonchi, tachypnea, wheezes Cardiovascular exam: PRESENT: RRR. ABSENT: diastolic murmur, rubs, systolic murmur Pulses: PRESENT: normal dorsalis pedis pul Vascular exam: PRESENT: normal capillary refill GI/Abdominal exam: PRESENT: normal bowel sounds, soft. ABSENT: distended, guarding, mass, organolmegaly, rebound, tenderness Rectal exam: PRESENT: deferred Extremities exam: PRESENT: full ROM. ABSENT: calf tenderness, clubbing, pedal edema Neurological exam: PRESENT: alert, awake, oriented to person, oriented to place , oriented to time, oriented to situation, CN II-XII grossly intact. ABSENT: motor sensory deficit Psychiatric exam: PRESENT: appropriate affect, normal mood. ABSENT: homicidal ideation, suicidal ideation Skin exam: PRESENT: dry, intact, warm. ABSENT: cyanosis, rash Results Laboratory Results: 06/27/16 04:35 Triglycerides 307 H Cholesterol 145.57 LDL Cholesterol Direct 57 VLDL Cholesterol 61.4 H HDL Cholesterol 40 06/26/16 06/27/16 17:15 10:29 Troponin I < 0.012 < 0.012 Impressions: Chest X-Ray 06/26/16 10:26 IMPRESSION: No acute cardiopulmonary findings. Head CT 06/26/16 10:27 IMPRESSION: No acute or suspicious findings. Qualifiers PATEINT BEING DISCHARGED WITH ANY OF THE FOLLOWING DIAGNOSIS?: No Plan Discharge Plan: I spent a significant amount of time discussing this with the patient and navigating the system of locating her pharmacy informatics specialist Dr. Nixon. A total of 60 minutes Time Spent: Greater than 30 Minutes
== END 2016-06-27 11:53 | disposition home or self-care (01) ==
LOC: ER 10:12 → EH 13:11 → 4N 15:43
PROVIDERS: ADMIT Internal Medicine; ATTEND Internal Medicine
PROC: 3E033GC Introduction of Other Therapeutic Substance into Peripheral Vein, Percutaneous Approach (ICD-10-PCS; principal; 2016-06-26)
DX: R07.9 Chest pain, unspecified (principal); I25.10 Atherosclerotic heart disease of native coronary artery without angina pectoris; F41.1 Generalized anxiety disorder; E11.22 Type 2 diabetes mellitus with diabetic chronic kidney disease; I12.9 Hypertensive chronic kidney disease with stage 1 through stage 4 chronic kidney disease, or unspecified chronic kidney disease; N18.3 Chronic kidney disease, stage 3 (moderate); Z95.818 Presence of other cardiac implants and grafts; D69.6 Thrombocytopenia, unspecified; E78.5 Hyperlipidemia, unspecified; Z79.84 Long term (current) use of oral hypoglycemic drugs
CPT/HCPCS: 93005 ×2; 99285; 96374; 36415 ×2; 82553; 82962 ×2; 82550; 83735; 84443; 85025; 85610; 80053; 81001; 84484 ×2; 80061; 71010; 70450; 93010 ×2; G0378 ×3; A9270 ×14; J1644; J3490; J7030; J1815

== ENCOUNTER 2016-07-10 16:57 | Emergency (ER) | payer MEDICARE ==
--- NOTE | 2016-07-10 17:21 | ER Document Report ---
ED Medical Screen (RME) - General Chief Complaint: Swelling of Lower Extremity Stated Complaint: FOOT SWELLING Notes: Patient noted the onset of painful swelling of her left ankle and somewhat of her left foot about one hour ago. She was visiting with relatives and says that she was not on her feet very much at all, just sitting and visiting. Has never had any problems with blood clots. Patient drove herself here to the emergency department and said on the way here she felt as if her heart was going too fast and also irregular. She felt "funny" in her chest along with feeling some shortness of breath. Has never had any of these symptoms before. No recent illness. No cough or cold or chest congestion. No fevers. Never been told she had heart failure. Patient does not really remember or feel as if she's been bitten by an insect. No pain above the left ankle. TRAVEL OUTSIDE OF THE [place] IN LAST 30 DAYS: No - Related Data Allergies/Adverse Reactions: codeine [Codeine] Allergy (Verified 06/26/16 10:16) Penicillins Allergy (Verified 06/26/16 10:16) Past Medical History - Past Medical History Cardiac Medical History: Reports: Hx Coronary Artery Disease, Hx Hypercholesterolemia, Hx Hypertension Pulmonary Medical History: Reports: Hx Bronchitis, Hx Pneumonia Neurological Medical History: Reports: Hx Migraine Endocrine Medical History: Reports: Hx Diabetes Mellitus Type 2 - diet controlled Renal/ Medical History: Denies: Hx Peritoneal Dialysis Malignancy Medical History: Denies: Hx Leukemia GI Medical History: Reports: Hx Gastroesophageal Reflux Disease. Denies: Hx Hepatitis, Hx Hiatal Hernia, Hx Ulcer Musculoskeltal Medical History: Denies Hx Arthritis, Reports Hx Musculoskeletal Deformity, Reports Hx Musculoskeletal Trauma Psychiatric Medical History: Reports: Hx Depression Infectious Medical History: Denies: Hx Hepatitis, Hx HIV Past Surgical History: Reports: Hx Appendectomy, Hx Cardiac Catheterization - stent x 2, Hx Cholecystectomy, Hx Coronary Stent - 2 stents mar 2012, Hx Hysterectomy, Hx Open Heart Surgery - STENTS, Hx Orthopedic Surgery - bilat knee replacement, back surgery 6, Hx Tonsillectomy. Denies: Hx Mastectomy, Hx Pacemaker - Immunizations Hx Diphtheria, Pertussis, Tetanus Vaccination: No Physical Exam - Vital signs Vitals: Temp Pulse Resp BP Pulse Ox 97.7 F 65 18 181/63 H 97 07/10/16 17:01 07/10/16 17:01 07/10/16 17:01 07/10/16 17:01 07/10/16 17:01 Course - Vital Signs Vital signs: Temp Pulse Resp BP Pulse Ox 97.7 F 65 18 181/63 H 97 07/10/16 17:01 07/10/16 17:01 07/10/16 17:01 07/10/16 17:01 07/10/16 17:01
[2016-07-10 18:07] LABS: ABSOLUTE EOSINOPHILS # (AUTO) 0.1 10^3/uL (0.0-0.6); ABSOLUTE MONOCYTES (AUTO) 0.5 10^3/uL (0.1-1.4); ABSOLUTE NEUT (AUTO) 1.9 10^3/uL (1.7-8.2); BASOPHILS % (AUTO) 0.7 % (0-2); EOSINOPHILS % (AUTO) 3.2 % (0-6); HEMATOCRIT 33.4 % (36.0-47.0); HEMOGLOBIN 11.3 g/dL (12.0-15.5); HGB HCT DIFFERENCE 0.5; LYMPHOCYTES % (AUTO) 27.3 % (13-45); MEAN CORPUSCULAR HGB CONC 33.9 g/dL (32.0-36.0); MEAN CORPUSCULAR VOLUME 91 fl (80-97); MONOCYTES % (AUTO) 14.4 % (3-13); RED BLOOD COUNT 3.66 10^6/uL (3.72-5.28); RED CELL DISTRIBUTION WIDTH 13.5 % (11.5-14.0); SEGMENTED NEUTROPHILS % (AUTO) 54.4 % (42-78); WHITE BLOOD COUNT 3.5 10^3/uL (4.0-10.5)
--- NOTE | 2016-07-10 18:16 | ER Document Report ---
ED Extremity Problem, Lower - General Mode of Arrival: Ambulatory Information source: Patient TRAVEL OUTSIDE OF THE [place] IN LAST 30 DAYS: No - HPI Patient complains to provider of: Swelling Associated symptoms: Other - See above <VELIA REYES - Last Filed: 07/10/16 18:44> <ANGELY JOHN - Last Filed: 07/12/16 21:01> - General Chief Complaint: Swelling of Lower Extremity Stated Complaint: Left foot swelling Notes: Patient is an 81 year old female, with a past medical history including cardiac stent placement, who presents to the emergency department complaining of swelling to her left lower leg. Patient reports that she hadn't really been paying attention to her legs until she used the bathroom this afternoon and couldn't pull her pants up over her leg. Patient states that the area also feels "hard as a brick". Patient denies difficulty walking, trouble breathing, chest pain, history of DVT, and recent long travel. 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 Patient is not on blood thinners. ( VELIA REYES) - Related Data Allergies/Adverse Reactions: codeine [Codeine] Allergy (Verified 06/26/16 10:16) Penicillins Allergy (Verified 06/26/16 10:16) Past Medical History - General Information source: Patient - Social History Smoking Status: Unknown if Ever Smoked Family History: Reviewed & Not Pertinent, Arthritis, CAD, CVA, DM, Hyperlipidemia, Hypertension, Malignancy Patient has suicidal ideation: No Patient has homicidal ideation: No - Past Medical History Cardiac Medical History: Reports: Hx Coronary Artery Disease, Hx Hypercholesterolemia, Hx Hypertension Pulmonary Medical History: Reports: Hx Bronchitis, Hx Pneumonia Neurological Medical History: Reports: Hx Migraine Endocrine Medical History: Reports: Hx Diabetes Mellitus Type 2 - diet controlled GI Medical History: Reports: Hx Gastroesophageal Reflux Disease Musculoskeltal Medical History: Reports Hx Musculoskeletal Deformity, Reports Hx Musculoskeletal Trauma Psychiatric Medical History: Reports: Hx Depression Past Surgical History: Reports: Hx Appendectomy, Hx Cardiac Catheterization - stent x 2, Hx Cholecystectomy, Hx Coronary Stent - 2 stents mar 2012, Hx Hysterectomy, Hx Open Heart Surgery - STENTS, Hx Orthopedic Surgery - bilat knee replacement, back surgery 6, Hx Tonsillectomy - Immunizations Hx Diphtheria, Pertussis, Tetanus Vaccination: No Hx Pneumococcal Vaccination: 02/24/11 <VELIA REYES - Last Filed: 07/10/16 18:44> Review of Systems - Review of Systems Constitutional: No symptoms reported EENT: No symptoms reported Cardiovascular: denies: Chest pain Respiratory: denies: Other - trouble breathing Gastrointestinal: No symptoms reported Genitourinary: No symptoms reported Female Genitourinary: No symptoms reported Musculoskeletal: See HPI, Leg swelling. denies: Other - difficulty walking Skin: No symptoms reported Hematologic/Lymphatic: No symptoms reported Neurological/Psychological: No symptoms reported -: Yes All other systems reviewed and negative <VELIA REYES - Last Filed: 07/10/16 18:44> Physical Exam - Vital signs Interpretation: Normal - General General appearance: Appears well, Alert - HEENT Head: Normocephalic, Atraumatic - Respiratory Respiratory status: No respiratory distress Chest status: Nontender Breath sounds: Normal Chest palpation: Normal - Cardiovascular Rhythm: Regular Heart sounds: Normal auscultation Murmur: No - Abdominal Inspection: Normal Distension: No distension Bowel sounds: Normal Tenderness: Nontender Organomegaly: No organomegaly - Extremities General upper extremity: Normal inspection, Normal ROM, Normal strength General lower extremity: Edema - subtly more to left than right, Normal ROM, Normal strength, Normal weight bearing - Neurological Neuro grossly intact: Yes Cognition: Normal Orientation: AAOx4 [place] Coma Scale Eye Opening: Spontaneous [place] Coma Scale Verbal: Oriented [place] Coma Scale Motor: Obeys Commands [place] Coma Scale Total: 15 Speech: Normal Motor strength normal: LUE, RUE, LLE, RLE - Psychological Associated symptoms: Normal affect, Normal mood - Skin Skin Temperature: Warm Skin Moisture: Dry Skin Color: Normal <VELIA REYES - Last Filed: 07/10/16 18:44> Course - Laboratory Result Diagrams: 07/10/16 17:50 07/10/16 17:50 <VELIA REYES - Last Filed: 07/10/16 18:44> - Laboratory Result Diagrams: 07/10/16 17:50 07/10/16 17:50 <ANGELY JOHN - Last Filed: 07/12/16 21:01> - Re-evaluation Re-evalutation: 07/10/16 20:41 Patient presents to the emergency department initially seen in triage physician chief complaint of left lower extremity swelling she states happened in an hour. She denies any history recent travel surgery mobilization DVT or pulmonary emboli. She denies any chest pain or shortness of breath. On examination there is no foot swelling or pain denies any injury no bony tenderness or deformity slight increased swelling of the left calf compared to the right but negative Homans sign good pulses and perfusion distally throughout with no neurological deficits. No acute cellulitis DVT ultrasound is negative labs are nonacute. They had obtained an x-ray as well which is sinus with no acute abnormalities. Patient will be discharged home leg elevation follow primary care physician in 2-3 days and discussed reasons for ED return sooner (ANGELY JOHN) - Vital Signs Vital signs: Temp Pulse Resp BP Pulse Ox 97.6 F 60 16 193/67 H 97 07/10/16 21:10 07/10/16 21:10 07/10/16 21:10 07/10/16 21:10 07/10/16 21:10 - Laboratory Laboratory results interpreted by me: 07/10/16 07/10/16 07/10/16 17:50 17:50 18:07 WBC 3.5 L RBC 3.66 L Hgb 11.3 L Hct 33.4 L Plt Count 84 L Monocytes % 14.4 H BUN 35 H Creatinine 1.38 H Est GFR ( Amer) 44 L Est GFR (Non-Af Amer) 37 L Glucose 313 H Calcium 10.3 H Alkaline Phosphatase 138 H Urine Protein 100 H Urine Glucose (UA) >=500 H - EKG Interpretation by Me Additional EKG results interpreted by me: 07/10/16 20:44 EKG interpreted by myself to reveal sinus rhythm at [address] segment elevation or depression (ANGELY JOHN) Discharge <VELIA REYES - Last Filed: 07/10/16 18:44> <ANGELY JOHN - Last Filed: 07/12/16 21:01> - Discharge Clinical Impression: lower extremity swelling of the left Condition: Stable Disposition: HOME, SELF-CARE Additional Instructions: Leg Pain, Nonspecific We did not find an obvious cause for your leg pain. There's no sign of blood clot, infection, or other serious disease. Possible causes of vague leg pain include muscle or joint inflammation, disc disease in the lower back, pressure on the nerves in the back, or reduced blood flow through the arteries of the leg. Rest the leg. Pain can be eased with an antiinflammatory pain medicine such as ibuprofen. If the pain involves a small area, a heating pad might help. Call the doctor or return if the leg becomes swollen, weak, discolored, or increasingly painful, or if you develop any other significant change in your health. Follow-up with your family doctor in 2-3 days return for increasing worsening or new symptoms Scribe Attestation: 07/12/16 21:00 i personally performed the services described in the documentation, reviewed the documentation recorded by the scribe in my presence and it accurately and completely records my words and actions. (ANGELY JOHN) Scribe Documentation - Scribe Written by Arcelia:: arcelia [place], 07/10/16, 1852 acting as scribe for :: Gregorio <VELIA REYES - Last Filed: 07/10/16 18:44>
[2016-07-10 18:24] LABS: ALANINE AMINOTRANSFERASE 30 U/L (9-52); ALBUMIN 4.2 g/dL (3.5-5.0); ALKALINE PHOSPHATASE 138 U/L (38-126); ANION GAP 15 (5-19); ASPARTATE AMINO TRANSFERASE 21 U/L (14-36); BILIRUBIN,DIRECT 0.3 mg/dL (0.0-0.4); BILIRUBIN,TOTAL 0.5 mg/dL (0.2-1.3); BLOOD UREA NITROGEN 35 mg/dL (7-20); CALCIUM 10.3 mg/dL (8.4-10.2); CARBON DIOXIDE 23 mmol/L (22-30); CHLORIDE 105 mmol/L (98-107); CREATININE RESULT 1.38 mg/dL (0.52-1.25); GLUCOSE 313 mg/dL (75-110); POTASSIUM 4.7 mmol/L (3.6-5.0); SODIUM 142.7 mmol/L (137-145); TOTAL PROTEIN 6.7 g/dL (6.3-8.2)
[2016-07-10 18:35] LABS: APPEARANCE,URINE CLEAR; BILIRUBIN,URINE NEGATIVE (NEGATIVE); GLUCOSE, URINE >=500 mg/dL (NEGATIVE); KETONES,URINE NEGATIVE (NEGATIVE); LEUKOCYTE ESTERASE,URINE NEGATIVE (NEGATIVE); NITRITE,URINE NEGATIVE (NEGATIVE); PROTEIN,URINE 100 mg/dL (NEGATIVE); URINE SPECIFIC GRAVITY 1.012; UROBILINOGEN,URINE NEGATIVE mg/dL (<2.0)
[2016-07-10 18:36] LABS: CREATINE KINASE MB 0.98 ng/mL (<4.55); TROPONIN I < 0.012 ng/mL
[2016-07-10 18:36] LABS: URINE BARBITURATES SCREEN NEGATIVE; URINE METHADONE SCREEN NEGATIVE; URINE OPIATES LOW NEGATIVE; URINE PHENCYCLIDINE SCREEN NEGATIVE
[2016-07-10 21:11] VITALS: BP 193/67
--- NOTE | 2016-07-11 08:43 | EKG REPORT ---
SEVERITY:- NORMAL ECG - SINUS RHYTHM : Confirmed by: Magalis Reyes 11-Jul-2016 08:41:50
== END 2016-07-10 21:11 | disposition home or self-care (01) ==
LOC: ER 16:57
DX: M79.89 Other specified soft tissue disorders (principal); I25.10 Atherosclerotic heart disease of native coronary artery without angina pectoris; I10 Essential (primary) hypertension; E11.9 Type 2 diabetes mellitus without complications; Z98.61 Coronary angioplasty status; Z88.5 Allergy status to narcotic agent; Z88.0 Allergy status to penicillin
CPT/HCPCS: 36415; 80053; 80307; 81001; 82553; 84484; 85025; 93005; 93010; 93971; 99284

== ENCOUNTER 2016-07-18 16:08 | Emergency (ER) | payer OTHER, MEDICARE ==
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
[2016-07-18] MEDS ORDERED: ONDANSETRON HCL INJ/PF 4 MG/2 ML SDV IV ONE (16:31)
[2016-07-18] MEDS ORDERED: MORPHINE SULFATE 10 MG/ML INJ IV ONE (16:32)
[2016-07-18] MEDS ORDERED: TRAMADOL HCL 50 MG TABLET PO ONE (19:23)
[2016-07-18] MEDS ORDERED: BACITRACIN ZINC OINTMENT 15 GM TP ONE (19:24)
[2016-07-18 19:50] VITALS: BP 186/70
== END 2016-07-18 19:50 | disposition home or self-care (01) ==
LOC: ER 16:08
DX: S00.03XA Contusion of scalp, initial encounter (principal); S00.01XA Abrasion of scalp, initial encounter; S16.1XXA Strain of muscle, fascia and tendon at neck level, initial encounter; S39.012A Strain of muscle, fascia and tendon of lower back, initial encounter; V89.2XXA Person injured in unspecified motor-vehicle accident, traffic, initial encounter; Z88.0 Allergy status to penicillin; Z88.6 Allergy status to analgesic agent; I25.10 Atherosclerotic heart disease of native coronary artery without angina pectoris; E78.00 Pure hypercholesterolemia, unspecified; I10 Essential (primary) hypertension; E11.9 Type 2 diabetes mellitus without complications; K21.9 Gastro-esophageal reflux disease without esophagitis; Z90.49 Acquired absence of other specified parts of digestive tract; Z96.653 Presence of artificial knee joint, bilateral
CPT/HCPCS: 99284; 96374; 96375; 72110; 70450; 72125; J2270; J2405; J3490

== ENCOUNTER 2016-08-20 21:28 | Emergency (ER) | payer MEDICARE, OTHER ==
[2016-08-20 21:44] VITALS: BP 175/74
--- NOTE | 2016-08-20 23:10 | RADIOLOGY REPORT (SQ) ---
EXAM DESCRIPTION: FOOT RIGHT COMPLETE COMPLETED DATE/TIME: 08/20/2016 10:54 pm REASON FOR STUDY: pain COMPARISON: None. NUMBER OF VIEWS: Three views. TECHNIQUE: AP, lateral and oblique radiographic images acquired of the right foot. LIMITATIONS: None. FINDINGS: MINERALIZATION: Bony structures are osteopenic BONES: No acute fracture or dislocation. A separate bony ossicle is identified at the level of the i nterphalangeal joint of the 1st digit which may be related to previous trauma. JOINTS: There is a mild hallux valgus. SOFT TISSUES: Soft tissue calcifications are identified adjacent to the distal end of the 1st metatar joby which may be related to previous trauma. OTHER: No other significant finding. IMPRESSION: No acute fracture or dislocation. Other findings as noted above. TECHNICAL DOCUMENTATION: JOB ID: [id number] [employer]- All Rights Reserved
[2016-08-20] MEDS ORDERED: ACETAMINOPHEN 325 MG TABLET PO ONE (23:39)
--- NOTE | 2016-08-20 23:39 | ER Document Report ---
ED General - General Chief Complaint: Foot Injury Stated Complaint: RIGHT FOOT INJURY Time Seen by Provider: 08/20/16 22:24 Notes: Patient is an 81-year-old female who presents with concerns of an injury to her right second toe. Since this occurred if she dropped a can of food on top of it earlier today. States that since that time she has had progressively worsening swelling and pain to the area. Nothing improves or worsens the pain. Denies any history of similar injury in the past. Denies any additional injury today. TRAVEL OUTSIDE OF THE [place] IN LAST 30 DAYS: No - Related Data Allergies/Adverse Reactions: codeine [Codeine] Allergy (Verified 06/26/16 10:16) Penicillins Allergy (Verified 06/26/16 10:16) Past Medical History - General Information source: Patient - Social History Smoking Status: Never Smoker Frequency of alcohol use: None Drug Abuse: None Lives with: Alone Family History: Reviewed & Not Pertinent, Arthritis, CAD, CVA, DM, Hyperlipidemia, Hypertension, Malignancy - Past Medical History Cardiac Medical History: Reports: Hx Coronary Artery Disease, Hx Hypercholesterolemia, Hx Hypertension Pulmonary Medical History: Reports: Hx Bronchitis, Hx Pneumonia Neurological Medical History: Reports: Hx Migraine Endocrine Medical History: Reports: Hx Diabetes Mellitus Type 2 - diet controlled Renal/ Medical History: Denies: Hx Peritoneal Dialysis Malignancy Medical History: Denies: Hx Leukemia GI Medical History: Reports: Hx Gastroesophageal Reflux Disease. Denies: Hx Hepatitis, Hx Hiatal Hernia, Hx Ulcer Musculoskeltal Medical History: Denies Hx Arthritis, Reports Hx Musculoskeletal Deformity, Reports Hx Musculoskeletal Trauma Psychiatric Medical History: Reports: Hx Depression Infectious Medical History: Denies: Hx Hepatitis, Hx HIV Past Surgical History: Reports: Hx Appendectomy, Hx Cardiac Catheterization - stent x 2, Hx Cholecystectomy, Hx Coronary Stent - 2 stents mar 2012, Hx Hysterectomy, Hx Open Heart Surgery - STENTS, Hx Orthopedic Surgery - bilat knee replacement, back surgery 6, Hx Tonsillectomy. Denies: Hx Mastectomy, Hx Pacemaker - Immunizations Hx Diphtheria, Pertussis, Tetanus Vaccination: No Hx Pneumococcal Vaccination: 02/24/11 Review of Systems - Review of Systems Notes: Constitutional: Negative for fever. Eyes: Negative for visual changes. ENT: Negative for facial injury Cardiovascular: Negative for chest injury. Respiratory: Negative for shortness of breath. Gastrointestinal: Negative for abdominal injury. Genitourinary: Negative for genital injury Musculoskeletal: Positive for right second toe injury Skin: Negative for laceration/abrasions. Neurological: Negative for head injury. Physical Exam - Vital signs Vitals: Temp Pulse Resp BP Pulse Ox 98.0 F 75 18 175/74 H 97 08/20/16 21:43 08/20/16 21:43 08/20/16 21:43 08/20/16 21:43 08/20/16 21:43 Interpretation: Hypertensive Notes: PHYSICAL EXAMINATION: GENERAL: Well-appearing, well-nourished and in no acute distress. HEAD: Atraumatic, normocephalic. EYES: sclera anicteric, conjunctiva are normal. ENT: Moist mucous membranes. NECK: Normal range of motion LUNGS: Normal work of breathing HEART: 2+ radial pulses bilaterally EXTREMITIES: There is bruising and swelling of the right second toe without any obvious deformity. Full flexion and extension of all digits of the bilateral toes. NEUROLOGICAL: No focal neurological deficits. Moves all extremities spontaneously and on command. PSYCH: Normal mood, normal affect. SKIN: Warm, Dry, normal turgor, no rashes or lesions noted. Course - Re-evaluation Re-evalutation: 08/20/16 23:37 No evidence of a septic joint, gout flare, dislocation, or fracture on exam and imaging. Patient does have a soft tissue injury based on exam and history due to blunt trauma to the right second toe. Vitals wnl. At this time, I do not see an indication for labs or further imaging. At this time will discharge with return precautions and follow-up recommendations. Verbal discharge instructions given a the bedside and opportunity for questions given. Medication warnings reviewed. Patient is in agreement with this plan and has verbalized understanding of return precautions and the need for primary care follow-up in the next 24-72 hours. - Vital Signs Vital signs: Temp Pulse Resp BP Pulse Ox 98.0 F 75 18 175/74 H 97 08/20/16 21:43 08/20/16 21:43 08/20/16 21:43 08/20/16 21:43 08/20/16 21:43 Discharge - Discharge Clinical Impression: Crushing injury of second toe, right Condition: Good Disposition: HOME, SELF-CARE Additional Instructions: Your x-ray does not show any acute fracture today. You likely have a soft tissue injury. Take tylenol 1000mg every 6 hours as needed for pain. Continue to apply ice to the area is much your able. Please follow-up with your primary care physician if you do not have improving your symptoms in the next 1-2 weeks. Please return immediately if you develop weakness, numbness, spreading redness from the area, or any other symptoms that are concerning to you.
== END 2016-08-20 23:40 | disposition home or self-care (01) ==
LOC: ER 21:28
DX: S97.122A Crushing injury of left lesser toe(s), initial encounter (principal); W20.8XXA Other cause of strike by thrown, projected or falling object, initial encounter; Z88.6 Allergy status to analgesic agent; Z88.0 Allergy status to penicillin; I25.10 Atherosclerotic heart disease of native coronary artery without angina pectoris; E78.00 Pure hypercholesterolemia, unspecified; I10 Essential (primary) hypertension; E11.9 Type 2 diabetes mellitus without complications; K21.9 Gastro-esophageal reflux disease without esophagitis; Z90.49 Acquired absence of other specified parts of digestive tract; Z96.653 Presence of artificial knee joint, bilateral
CPT/HCPCS: 99283

== ENCOUNTER 2016-10-01 12:04 | Emergency (ER) | payer MEDICARE ==
[2016-10-01] MEDS ORDERED: ASPIRIN 81 MG TABLET, CHEWABLE PO ONE (12:56)
--- NOTE | 2016-10-01 13:53 | RADIOLOGY REPORT (SQ) ---
EXAM DESCRIPTION: CHEST SINGLE VIEW COMPLETED DATE/TIME: 10/01/2016 1:43 pm REASON FOR STUDY: cp COMPARISON: June 2016 EXAM PARAMETERS: NUMBER OF VIEWS: One view. TECHNIQUE: Single frontal radiographic view of the chest acquired. RADIATION DOSE: NA LIMITATIONS: None. FINDINGS: LUNGS AND PLEURA: No opacities, masses or pneumothorax. No pleural effusion. MEDIASTINUM AND HILAR STRUCTURES: No masses. Contour normal. HEART AND VASCULAR STRUCTURES: Heart normal in size. Normal vasculature. BONES: No acute findings. HARDWARE: None in the chest. OTHER: No other significant finding. IMPRESSION: NO ACUTE RADIOGRAPHIC FINDING IN THE CHEST. TECHNICAL DOCUMENTATION: JOB ID: [id number]
[2016-10-01 14:08] LABS: ABSOLUTE BASOPHILS # (AUTO) 0.1 10^3/uL (0.0-0.2); ABSOLUTE EOSINOPHILS # (AUTO) 0.1 10^3/uL (0.0-0.6); ABSOLUTE LYMPHOCYTES (AUTO) 0.9 10^3/uL (0.5-4.7); ABSOLUTE MONOCYTES (AUTO) 0.5 10^3/uL (0.1-1.4); ABSOLUTE NEUT (AUTO) 3.4 10^3/uL (1.7-8.2); BASOPHILS % (AUTO) 1.1 % (0-2); EOSINOPHILS % (AUTO) 2.2 % (0-6); HEMATOCRIT 37.7 % (36.0-47.0); HEMOGLOBIN 12.4 g/dL (12.0-15.5); HGB HCT DIFFERENCE -0.5; LYMPHOCYTES % (AUTO) 18.8 % (13-45); MEAN CORPUSCULAR HEMOGLOBIN 30.2 pg (27.0-33.4); MEAN CORPUSCULAR HGB CONC 32.9 g/dL (32.0-36.0); MEAN CORPUSCULAR VOLUME 92 fl (80-97); MONOCYTES % (AUTO) 9.4 % (3-13); RED BLOOD COUNT 4.12 10^6/uL (3.72-5.28); RED CELL DISTRIBUTION WIDTH 13.5 % (11.5-14.0); SEGMENTED NEUTROPHILS % (AUTO) 68.5 % (42-78)
[2016-10-01] MEDS ORDERED: HYDRALAZINE HCL 25 MG TABLET PO ONE (14:12)
--- NOTE | 2016-10-01 14:12 | ER Document Report ---
ED Blood Pressure Problem - General Chief Complaint: Blood Pressure Problem Stated Complaint: HEART ISSUES Time Seen by Provider: 10/01/16 12:56 Mode of Arrival: Ambulatory Information source: Patient Notes: Patient is an 81-year-old female with a history of hypertension, A. erika who presents to the ER today for high blood pressure she was sent from urgent care with. Patient states that she did not take any of her medications this morning including blood pressure medications, atenolol, Plavix because she "did not have them with her." She states that she went grocery shopping and started to feel lightheaded so she went to the urgent care. She states when she got there they sent her blood pressure was too high and she needed to go to the emergency department. At the ER her blood pressure was 200/80. She denies any headache, blurred vision, chest pain, weakness anywhere, numbness or tingling. TRAVEL OUTSIDE OF THE [place] IN LAST 30 DAYS: No - Related Data Allergies/Adverse Reactions: codeine [Codeine] Allergy (Verified 10/01/16 12:07) Penicillins Allergy (Verified 10/01/16 12:07) Past Medical History - General Information source: Patient - Social History Smoking Status: Never Smoker Chew tobacco use (# tins/day): No Frequency of alcohol use: None Drug Abuse: None Family History: Reviewed & Not Pertinent, Arthritis, CAD, CVA, DM, Hyperlipidemia, Hypertension, Malignancy Patient has suicidal ideation: No Patient has homicidal ideation: No - Past Medical History Cardiac Medical History: Reports: Hx Coronary Artery Disease, Hx Hypercholesterolemia, Hx Hypertension Pulmonary Medical History: Reports: Hx Bronchitis, Hx Pneumonia Neurological Medical History: Reports: Hx Migraine Endocrine Medical History: Reports: Hx Diabetes Mellitus Type 2 - diet controlled Renal/ Medical History: Denies: Hx Peritoneal Dialysis Malignancy Medical History: Denies: Hx Leukemia GI Medical History: Reports: Hx Gastroesophageal Reflux Disease. Denies: Hx Hepatitis, Hx Hiatal Hernia, Hx Ulcer Musculoskeltal Medical History: Denies Hx Arthritis, Reports Hx Musculoskeletal Deformity, Reports Hx Musculoskeletal Trauma Psychiatric Medical History: Reports: Hx Depression Infectious Medical History: Denies: Hx Hepatitis, Hx HIV Past Surgical History: Reports: Hx Appendectomy, Hx Cardiac Catheterization - stent x 2, Hx Cholecystectomy, Hx Coronary Stent - 2 stents mar 2012, Hx Hysterectomy, Hx Open Heart Surgery - STENTS, Hx Orthopedic Surgery - bilat knee replacement, back surgery 6, Hx Tonsillectomy. Denies: Hx Mastectomy, Hx Pacemaker - Immunizations Hx Diphtheria, Pertussis, Tetanus Vaccination: No Hx Pneumococcal Vaccination: 02/24/11 Review of Systems - Review of Systems Constitutional: No symptoms reported EENT: No symptoms reported Cardiovascular: See HPI Respiratory: No symptoms reported Gastrointestinal: No symptoms reported Genitourinary: No symptoms reported Female Genitourinary: No symptoms reported Musculoskeletal: No symptoms reported Skin: No symptoms reported Hematologic/Lymphatic: No symptoms reported Neurological/Psychological: No symptoms reported Physical Exam - Vital signs Vitals: Temp Pulse Resp BP Pulse Ox 98.1 F 75 14 211/79 H 99 10/01/16 12:07 10/01/16 12:10/01/16 12:10/01/16 12:10/01/16 12:07 - Notes Notes: PHYSICAL EXAMINATION: GENERAL: Well-appearing, smiling, and in no acute distress. HEAD: Atraumatic, normocephalic. EYES: Pupils equal round and reactive to light, extraocular movements intact, sclera anicteric, conjunctiva are normal. NECK: Normal range of motion, supple without lymphadenopathy LUNGS: CTAB and equal. No wheezes rales or rhonchi. HEART: Regular rate and rhythm without murmurs ABDOMEN: Soft, no tenderness. No guarding, no rebound BACK: no vertebral tenderness, normal ROM GI/: no CVA tenderness EXTREMITIES: Normal range of motion, no pitting edema. No cyanosis. NEUROLOGICAL: Cranial nerves grossly intact. Normal sensory/motor exams. Good and equal strength bilaterally, Kernig and Brudzinski's signs negative, Romberg' s test normal, normal heel to romero testing PSYCH: Normal mood, normal affect. SKIN: Warm, Dry, normal turgor, no rashes or lesions noted Course - Re-evaluation Re-evalutation: 10/01/16 17:15 pt just went into a fib, has a hx of a fib. hasn't taken her meds today. 10/01/16 17:39 Number today is at her baseline, 2 troponins are normal. Patient has gone into A. fib here in the emergency department, however has a history of A. fib and has not taken her atenolol or Plavix or any other medications today. Her blood pressure is much better at 165/84 and she has no longer lightheaded or symptomatic from the blood pressure. She denies any chest pain, shortness of breath. At this time I have consulted with Dr. Ryan who agrees that pt can go home to take her own medications. - Vital Signs Vital signs: Temp Pulse Resp BP Pulse Ox 98.1 F 75 18 164/81 H 99 10/01/16 12:07 10/01/16 12:07 10/01/16 17:02 10/01/16 17:02 10/01/16 17:02 - Laboratory Result Diagrams: 10/01/16 13:45 10/01/16 13:45 Laboratory results interpreted by me: 10/01/16 10/01/16 10/01/16 13:45 13:45 13:45 Plt Count 91 L BUN 29 H Creatinine 1.47 H Est GFR ( Amer) 41 L Est GFR (Non-Af Amer) 34 L Glucose 263 H Calcium 10.5 H Direct Bilirubin 0.5 H Alkaline Phosphatase 136 H Creatine Kinase 170 H NT-Pro-B Natriuret Pep 649 H Discharge - Discharge Clinical Impression: Atrial fibrillation Qualifiers: Atrial fibrillation type: unspecified Qualified Code(s): I48.91 - Unspecified atrial fibrillation Hypertension Qualifiers: Hypertension type: unspecified secondary hypertension Qualified Code(s): I15.9 - Secondary hypertension, unspecified; I15 - Secondary hypertension Condition: Stable Disposition: HOME, SELF-CARE Instructions: Atrial Fibrillation ([facility]) Additional Instructions: Return immediately for any new or worsening symptoms. Follow up with primary care provider, call tomorrow to make followup appointment. Prescriptions: Hydroxyzine Pamoate [Vistaril 25 mg Capsule] 25 mg PO DAILY #14 capsule Referrals: ADELE BRANTLEY MD [ACTIVE STAFF] - Follow up as needed BRITTANY MILLER MD [ACTIVE STAFF] - Follow up as needed SHAY GONZALEZ MD [NO LOCAL MD] - Follow up as needed
[2016-10-01 14:19] LABS: ALANINE AMINOTRANSFERASE 41 U/L (9-52); ALBUMIN 4.5 g/dL (3.5-5.0); ALKALINE PHOSPHATASE 136 U/L (38-126); ANION GAP 12 (5-19); ASPARTATE AMINO TRANSFERASE 30 U/L (14-36); BILIRUBIN,DIRECT 0.5 mg/dL (0.0-0.4); BILIRUBIN,TOTAL 0.6 mg/dL (0.2-1.3); BLOOD UREA NITROGEN 29 mg/dL (7-20); CALCIUM 10.5 mg/dL (8.4-10.2); CARBON DIOXIDE 26 mmol/L (22-30); CHLORIDE 105 mmol/L (98-107); CREATINE KINASE 170 U/L (30-135); CREATININE RESULT 1.47 mg/dL (0.52-1.25); GLUCOSE 263 mg/dL (75-110); POTASSIUM 3.8 mmol/L (3.6-5.0); SODIUM 143.1 mmol/L (137-145); TOTAL PROTEIN 7.6 g/dL (6.3-8.2)
[2016-10-01 14:29] LABS: CREATINE KINASE MB 1.53 ng/mL (<4.55)
[2016-10-01 14:31] LABS: TROPONIN I < 0.012 ng/mL
[2016-10-01] MEDS ORDERED: ALBUTEROL SULFATE 0.083% NEB 2.5 MG/3 ML AMPUL NEB ONE (16:30)
--- NOTE | 2016-10-01 16:35 | EKG REPORT ---
SEVERITY:- NORMAL ECG - SINUS RHYTHM : Confirmed by: Andi Faria MD 01-Oct-2016 16:35:27
[2016-10-01 18:30] VITALS: BP 164/82
--- NOTE | 2016-10-02 07:59 | EKG REPORT ---
SEVERITY:- NORMAL ECG - SINUS RHYTHM : Confirmed by: Andi Faria MD 02-Oct-2016 07:58:51
== END 2016-10-01 18:00 | disposition home or self-care (01) ==
LOC: ER 12:04
DX: I10 Essential (primary) hypertension (principal); T44.7X6A Underdosing of beta-adrenoreceptor antagonists, initial encounter; I48.91 Unspecified atrial fibrillation; T45.526A Underdosing of antithrombotic drugs, initial encounter; Z91.128 Patient's intentional underdosing of medication regimen for other reason; Z91.14 Patient's other noncompliance with medication regimen; Z79.899 Other long term (current) drug therapy; Z79.02 Long term (current) use of antithrombotics/antiplatelets; I25.10 Atherosclerotic heart disease of native coronary artery without angina pectoris; E11.9 Type 2 diabetes mellitus without complications; Z98.61 Coronary angioplasty status; Z88.5 Allergy status to narcotic agent; Z88.0 Allergy status to penicillin
CPT/HCPCS: 93005; 94640; 99284; 36415; 82553; 82550; 85025; 80053; 84484; 83880; 71010; 93010; A9270 ×3

== ENCOUNTER 2016-10-09 20:09 | Emergency (ER) | payer MEDICARE ==
[2016-10-10 00:33] LABS: ANION GAP 10 (5-19); BLOOD UREA NITROGEN 31 mg/dL (7-20); CALCIUM 10.1 mg/dL (8.4-10.2); CARBON DIOXIDE 23 mmol/L (22-30); CHLORIDE 109 mmol/L (98-107); CREATININE RESULT 1.23 mg/dL (0.52-1.25); GLUCOSE 252 mg/dL (75-110); SODIUM 142.3 mmol/L (137-145)
--- NOTE | 2016-10-10 00:47 | RADIOLOGY REPORT (SQ) ---
EXAM DESCRIPTION: CHEST SINGLE VIEW COMPLETED DATE/TIME: 10/10/2016 12:35 am REASON FOR STUDY: chest pain COMPARISON: Chest x-ray 10/01/2016. EXAM PARAMETERS: NUMBER OF VIEWS: One view. TECHNIQUE: Single frontal radiographic view of the chest acquired. RADIATION DOSE: NA LIMITATIONS: None. FINDINGS: LUNGS AND PLEURA: No consolidation, pneumothorax or pleural effusion. MEDIASTINUM AND HILAR STRUCTURES: No masses. Contour normal. HEART AND VASCULAR STRUCTURES: Heart normal in size. No overt vascular congestion. BONES: Healed left-sided rib fractures. HARDWARE: None in the chest. IMPRESSION: No acute radiographic finding in the chest. TECHNICAL DOCUMENTATION: JOB ID: [id number]
[2016-10-10] MEDS ORDERED: CEPHALEXIN 500 MG CAPSULE PO ONE (01:15)
[2016-10-10] MEDS ORDERED: DOXYCYCLINE HYCLATE 100 MG TABLET PO ONE (01:15)
[2016-10-10] MEDS ORDERED: ACETAMINOPHEN 325 MG TABLET PO ONE (01:18)
--- NOTE | 2016-10-10 01:19 | ER Document Report ---
ED General - General Chief Complaint: Breast Problem Stated Complaint: BREAST PAIN Time Seen by Provider: 10/09/16 22:31 Notes: Patient is an 81-year-old female who presents with complaints of left chest wall and breast pain with an associated left breast abscess. No history of similar symptoms in the past. She has not seen her primary care doctor regarding today's concerns. Notes that the breast abscesses been present and getting progressively worse over the last 4-5 days. She has noted spreading erythema around that area. She does note a dull, constant aching pain to the affected area. However she notes that approximately 12 hours prior to arrival she did develop a worsening of back pain along the left sternal border. No radiation of the pain into the arm jaw or back. Denies any associated nausea, vomiting, shortness of breath or diaphoresis. She does have a history of coronary artery disease and hypertension. No history of DVT or pulmonary embolus. She has not had any fever or constitutional symptoms. TRAVEL OUTSIDE OF THE [place] IN LAST 30 DAYS: No - Related Data Allergies/Adverse Reactions: codeine [Codeine] Allergy (Verified 10/01/16 12:07) Penicillins Allergy (Verified 10/01/16 12:07) Past Medical History - General Information source: Patient - Social History Smoking Status: Never Smoker Frequency of alcohol use: None Drug Abuse: None Lives with: Alone Family History: Reviewed & Not Pertinent, Arthritis, CAD, CVA, DM, Hyperlipidemia, Hypertension, Malignancy Patient has suicidal ideation: No Patient has homicidal ideation: No - Past Medical History Cardiac Medical History: Reports: Hx Coronary Artery Disease, Hx Hypercholesterolemia, Hx Hypertension Pulmonary Medical History: Reports: Hx Bronchitis, Hx Pneumonia Neurological Medical History: Reports: Hx Migraine Endocrine Medical History: Reports: Hx Diabetes Mellitus Type 2 - diet controlled Renal/ Medical History: Denies: Hx Peritoneal Dialysis Malignancy Medical History: Denies: Hx Leukemia GI Medical History: Reports: Hx Gastroesophageal Reflux Disease. Denies: Hx Hepatitis, Hx Hiatal Hernia, Hx Ulcer Musculoskeltal Medical History: Denies Hx Arthritis, Reports Hx Musculoskeletal Deformity, Reports Hx Musculoskeletal Trauma Psychiatric Medical History: Reports: Hx Depression Infectious Medical History: Denies: Hx Hepatitis, Hx HIV Past Surgical History: Reports: Hx Appendectomy, Hx Cardiac Catheterization - stent x 2, Hx Cholecystectomy, Hx Coronary Stent - 2 stents mar 2012, Hx Hysterectomy, Hx Open Heart Surgery - STENTS, Hx Orthopedic Surgery - bilat knee replacement, back surgery 6, Hx Tonsillectomy. Denies: Hx Mastectomy, Hx Pacemaker - Immunizations Hx Diphtheria, Pertussis, Tetanus Vaccination: No Hx Pneumococcal Vaccination: 02/24/11 Review of Systems - Review of Systems Notes: Constitutional: Negative for fever. HENT: Negative for sore throat. Eyes: Negative for visual changes. Cardiovascular: Positive for chest pain. Respiratory: Negative for shortness of breath. Gastrointestinal: Negative for abdominal pain, vomiting or diarrhea. Genitourinary: Negative for dysuria. Musculoskeletal: Negative for back pain. Skin: positive for left breast abscess with surrounding cellulitis Neurological: Negative for headaches, weakness or numbness. 10 point ROS negative except as marked above and in HPI. Physical Exam - Vital signs Vitals: Temp Pulse Resp BP Pulse Ox 97.7 F 72 18 166/56 H 96 10/09/16 20:14 10/09/16 20:14 10/09/16 20:14 10/09/16 20:14 10/09/16 20:14 Interpretation: Hypertensive Notes: PHYSICAL EXAMINATION: GENERAL: Well-appearing, well-nourished and in no acute distress. HEAD: Atraumatic, normocephalic. EYES: Pupils equal round and reactive to light, extraocular movements intact, sclera anicteric, conjunctiva are normal. ENT: nares patent, oropharynx clear without exudates. Moist mucous membranes. NECK: Normal range of motion, supple without lymphadenopathy LUNGS: Breath sounds clear to auscultation bilaterally and equal. No wheezes rales or rhonchi. HEART: Regular rate and rhythm without murmurs ABDOMEN: Soft, nontender, normoactive bowel sounds. No guarding, no rebound. No masses appreciated. EXTREMITIES: Normal range of motion, no pitting or edema. No cyanosis. NEUROLOGICAL: No focal neurological deficits. Moves all extremities spontaneously and on command. PSYCH: Normal mood, normal affect. SKIN: Warm, Dry, normal turgor, there is a 1 x 1 cm abscess in the left medial breast with surrounding erythema Course - Re-evaluation Re-evalutation: 10/10/16 03:22 Patient presents with a left lower medial breast abscess approximately 1 x 1 cm with surrounding erythema and cellulitis which was incised and drained the bedside with expression of approximately 5 cc of purulent drainage. Patient has been started on doxycycline and Keflex for coverage of both staph and MRSA. Patient did also complain of some left-sided chest wall pain which is been present for the past 12 hours. Low clinical suspicion for ACS given clinical history, exam, EKG without ST elevations or depressions, and negative troponin. Clinical history is not consistent with an acute pulmonary embolus and her well score is 0. CXR without evidence of pneumothorax or pneumonia. No widened mediastinum. Aortic dissection also seems unlikely given history, symmetric pulses, CXR, and vitals. Overall her pain seems to be much more consistent as related to her cellulitis of the left breast. She did note that she had resolution of her pain after incision and drainage of the abscess. At this time will discharge with return precautions and follow-up recommendations. Verbal discharge instructions given a the bedside and opportunity for questions given. Medication warnings reviewed. Patient is in agreement with this plan and has verbalized understanding of return precautions and the need for primary care follow-up in the next 24-72 hours. - Vital Signs Vital signs: Temp Pulse Resp BP Pulse Ox 97.7 F 72 17 165/75 H 98 10/09/16 20:14 10/09/16 20:14 10/10/16 02:02 10/10/16 02:02 10/10/16 02:02 - Laboratory Result Diagrams: 10/09/16 23:45 Laboratory results interpreted by me: 10/09/16 23:45 Chloride 109 H BUN 31 H Est GFR ( Amer) 51 L Est GFR (Non-Af Amer) 42 L Glucose 252 H - Diagnostic Test Radiology reviewed: Image reviewed, Reports reviewed Radiology results interpreted by me: 10/10/16 03:23 Chest x-ray: No acute infiltrate or pneumothorax - EKG Interpretation by Me Additional EKG results interpreted by me: 10/10/16 03:23 Normal sinus rhythm. Rate 63. No ST elevations or depressions. QTC is 467. Procedures - Incision and Drainage Left Time completed: 01:18 Type: Simple Anesthetic type: 1% Lidocaine mL's of anesthetic: 4 Blade size: 11 I&D procedure: Betadine prep applied Incision Method: Incision made by scalpel Amount/type of drainage: 5 cc purulent drainage Discharge - Discharge Clinical Impression: Left breast abscess Chest pain Qualifiers: Chest pain type: unspecified Qualified Code(s): R07.9 - Chest pain, unspecified Condition: Good Disposition: HOME, SELF-CARE Additional Instructions: You were seen for an abscess that required drainage. Please clean this area with soap and water twice daily and apply a topical antibiotic. Take all antibiotics as directed. Dress the area after each cleaning. Please return if you develop fever, vomiting, the pain at the site worsens, you notice spreading redness from the area, or you have any other symptoms that are concerning to you. Your chest pains likely due to the abscess and surrounding cellulitis. Return if you develop worsening of that pain, shortness of breath, nausea, vomiting or passing out. Prescriptions: Cephalexin Monohydrate [Keflex 500 mg Capsule] 500 mg PO QID #28 capsule Doxycycline Hyclate 100 mg PO BID #14 capsule
[2016-10-10 02:07] VITALS: BP 165/75
--- NOTE | 2016-10-10 07:21 | EKG REPORT ---
SEVERITY:- NORMAL ECG - SINUS RHYTHM : Confirmed by: Magalis Reyes 10-Oct-2016 07:20:44
== END 2016-10-10 02:24 | disposition home or self-care (01) ==
LOC: ER 20:09
PROC: 0H9UXZZ (ICD-10-PCS; principal; 2016-10-09)
DX: N61.1 Abscess of the breast and nipple (principal); N64.4 Mastodynia; R07.89 Other chest pain; I25.10 Atherosclerotic heart disease of native coronary artery without angina pectoris
CPT/HCPCS: 93005; 99285; 36415; 80048; 84484; 71010; 93010; 10140; A9270 ×3

== ENCOUNTER 2016-12-06 20:20 | Emergency (ER) | payer MEDICARE ==
[2016-12-06] MEDS ORDERED: ACETAMINOPHEN 325 MG TABLET PO ONE (21:19)
--- NOTE | 2016-12-06 21:31 | ER Document Report ---
ED Extremity Problem, Upper - General Chief Complaint: Fall Injury Stated Complaint: FALL/RIGHT SHOULDER,BACK, KNEE PAIN Time Seen by Provider: 12/06/16 21:01 TRAVEL OUTSIDE OF THE [place] IN LAST 30 DAYS: No - Related Data Allergies/Adverse Reactions: codeine [Codeine] Allergy (Verified 12/06/16 20:25) Penicillins Allergy (Verified 12/06/16 20:25) Past Medical History - Social History Smoking Status: Never Smoker Chew tobacco use (# tins/day): No Frequency of alcohol use: None Drug Abuse: None Family History: Reviewed & Not Pertinent, Arthritis, CAD, CVA, DM, Hyperlipidemia, Hypertension, Malignancy Patient has suicidal ideation: No Patient has homicidal ideation: No - Past Medical History Cardiac Medical History: Reports: Hx Coronary Artery Disease, Hx Hypercholesterolemia, Hx Hypertension Pulmonary Medical History: Reports: Hx Bronchitis, Hx Pneumonia Neurological Medical History: Reports: Hx Migraine Endocrine Medical History: Reports: Hx Diabetes Mellitus Type 2 - diet controlled Renal/ Medical History: Denies: Hx Peritoneal Dialysis Malignancy Medical History: Denies: Hx Leukemia GI Medical History: Reports: Hx Gastroesophageal Reflux Disease. Denies: Hx Hepatitis, Hx Hiatal Hernia, Hx Ulcer Musculoskeltal Medical History: Denies Hx Arthritis, Reports Hx Musculoskeletal Deformity, Reports Hx Musculoskeletal Trauma Psychiatric Medical History: Reports: Hx Depression Infectious Medical History: Denies: Hx Hepatitis, Hx HIV Past Surgical History: Reports: Hx Appendectomy, Hx Cardiac Catheterization - stent x 2, Hx Cholecystectomy, Hx Coronary Stent - 2 stents mar 2012, Hx Hysterectomy, Hx Open Heart Surgery - STENTS, Hx Orthopedic Surgery - bilat knee replacement, back surgery 6, Hx Tonsillectomy. Denies: Hx Mastectomy, Hx Pacemaker - Immunizations Hx Diphtheria, Pertussis, Tetanus Vaccination: No Hx Pneumococcal Vaccination: 02/24/11 Physical Exam - Vital signs Vitals: Temp Pulse Resp BP Pulse Ox 97.9 F 77 16 189/80 H 98 12/06/16 20:27 12/06/16 20:27 12/06/16 20:27 12/06/16 20:27 12/06/16 20:27 Course - Vital Signs Vital signs: Temp Pulse Resp BP Pulse Ox 97.9 F 77 16 189/80 H 98 12/06/16 20:27 12/06/16 20:27 12/06/16 20:27 12/06/16 20:27 12/06/16 20:27 Discharge - Discharge Additional Instructions: CONTUSION: Your injury has resulted in a contusion -- a crushing of the deep tissues. No injury to important structures was detected during the physician's exam. Contusions vary in the amount of pain they cause, and in the length of time required for healing. Typically, the area will become bruised, and will remain painful to touch for two or three weeks. However, most patients are back to working and playing within a few days. After the initial period of rest and cold-packs, your symptoms (together with the doctor's recommendations) will determine how rapidly you can get back to full activity. Usually this means "do what feels okay, but don't do things that hurt." If re-examination was recommended, it's important to follow up as instructed. Call the doctor or return any time if pain increases, if swelling becomes severe, if you develop numbness or weakness in an injured extremity, or if any other alarming symptoms occur. USE OF TYLENOL (ACETAMINOPHEN): Acetaminophen may be taken for pain relief or fever control. It's much safer than aspirin, offering a wider range of "safe" dosages. It is safe during . Some brand names are Tylenol, Panadol, Datril, Anacin 3, Tempra, and Liquiprin. Acetaminophen can be repeated every four hours. The following are maximum recommended dosages: WEIGHT Dose Drops Elixir Chewable( 80mg) (LBS.) drprs=droppers tsp=teaspoon 6 40 mg 0.4 ml (1/2) 6-11 80 mg 0.8 ml (full) tsp 1 tab 12-16 120 mg 1 1/2 drprs 3/4 tsp 1 1/2 tabs 17-23 160 mg 2 drprs 1 tsp 2 tabs 24-30 240 mg 3 drprs 1 1/2 tsp 3 tabs 30-35 320 mg 2 tsp 4 tabs 36-41 360 mg 2 1/4 tsp 4 1/2 tabs 42-47 400 mg 2 1/2 tsp 5 tabs 48-53 480 mg 3 tsp 6 tabs 54-59 520 mg 3 1/4 tsp 6 1/2 tabs 60-64 560 mg 3 1/2 tsp 7 tabs 65-70 600 mg 3 3/4 tsp 7 1/2 tabs 71-76 640 mg 4 tsp 8 tabs 77-82 720 mg 4 1/2 tsp 9 tabs 83-88 800 mg 5 tsp 10 tabs >89 pounds or adults 650 mg to 900 mg Acetaminophen can be repeated every four hours. Maximum dose not to exceed 4000 mg a day. These maximum recommended dosages are slightly higher than the dosages written on the product container, but these dosages are very safe and below the toxic dosage for acetaminophen. ICE & ELEVATION: Apply ice packs frequently against the painful area. Many different schedules are recommended, such as "20 minutes on, 20 minutes off" or "one hour ice, two hours rest." If you need to work, you may need to go longer between ice treatments. You should plan to have the area ice packed AT LEAST one- fourth of the time. The ice should be applied over the wrap, tape, or splint, or over a layer of cloth -- not directly against the skin. Some ice bags have a built-in cloth and can be put directly on the skin. Your injured part should be elevated as much as possible over the next 48 hours. Try to keep the injury above the level of the heart. Avoid use of the injured area. Elevation and rest will decrease the swelling. USE OF [id number] IBUPROFEN: Ibuprofen (Advil, Nuprin, Medipren, Motrin IB) is a medication for fever and pain control. In addition, it has anti- inflammatory effects which may be beneficial, especially in the treatment of injuries. It's best to take ibuprofen with food. Persons with ulcer disease or allergy to aspirin should notify their physician of this before taking ibuprofen. Ibuprofen can be given every four to six hours, for a total of four doses daily. Age Pain or fever dose Antiinflammatory dose 6-8 yr 200 mg (1 tab) 200 mg (1 tab) 9-11 yr 200 mg (1 tab) 200-400 mg (1-2 tab) 11-14 yr 200-400 mg (1-2 tab) 400 mg (2 tab) 15-adult 400 mg (2 tab) 600 mg (3 tab) FOLLOW-UP CARE: If you have been referred to a physician for follow-up care, call the physician s office for an appointment as you were instructed or within the next two days. If you experience worsening or a significant change in your symptoms, notify the physician immediately or return to the Emergency Department at any time for re-evaluation. Forms: Release from [facility]
--- NOTE | 2016-12-06 21:44 | RADIOLOGY REPORT (SQ) ---
EXAM DESCRIPTION: KNEE RIGHT 4 VIEWS COMPLETED DATE/TIME: 12/06/2016 9:35 pm REASON FOR STUDY: fell pain in right shoulder and both knees COMPARISON: None. NUMBER OF VIEWS: Four views. TECHNIQUE: AP, lateral, and both oblique radiographic images acquired of the right knee. LIMITATIONS: None. FINDINGS: MINERALIZATION: Normal. BONES: No acute fracture or dislocation. No worrisome bone lesions. JOINT: There is been a total right knee replacement. SOFT TISSUES: No soft tissue swelling. No radio-opaque foreign body. OTHER: There is vascular calcification. IMPRESSION: Prior total knee replacement. No acute findings. TECHNICAL DOCUMENTATION: JOB ID: [id number] [employer]- All Rights Reserved
--- NOTE | 2016-12-06 21:45 | RADIOLOGY REPORT (SQ) ---
EXAM DESCRIPTION: SHOULDER RIGHT 2 OR MORE VIEWS COMPLETED DATE/TIME: 12/06/2016 9:35 pm REASON FOR STUDY: fell pain in right shoulder and both knees COMPARISON: None. NUMBER OF VIEWS: Three views. TECHNIQUE: Internal rotation, external rotation, and Y view images acquired of the right shoulder. LIMITATIONS: None. FINDINGS: MINERALIZATION: Normal. BONES: No acute fracture or dislocation. No worrisome bone lesions. JOINTS: No dislocation. There are degenerative changes in the AC joint. VISUALIZED LUNGS AND RIBS: No pneumothorax. No rib fracture. SOFT TISSUES: No radiopaque foreign body. OTHER: There is calcification of the supraspinatus tendon near its insertion site. IMPRESSION: Degenerative changes. No acute findings. TECHNICAL DOCUMENTATION: JOB ID: [id number] [employer]- All Rights Reserved
--- NOTE | 2016-12-06 21:45 | RADIOLOGY REPORT (SQ) ---
EXAM DESCRIPTION: KNEE LEFT 4 VIEW COMPLETED DATE/TIME: 12/06/2016 9:36 pm REASON FOR STUDY: fell pain in right shoulder and both knees COMPARISON: None. NUMBER OF VIEWS: Four views. TECHNIQUE: AP, lateral, and both oblique radiographic images acquired of the left knee. LIMITATIONS: None. FINDINGS: MINERALIZATION: Normal. BONES: No acute fracture or dislocation. No worrisome bone lesions. JOINT: There is been a total knee replacement. SOFT TISSUES: No soft tissue swelling. No radio-opaque foreign body. OTHER: No other significant finding. IMPRESSION: Postsurgical changes with a total knee replacement. No acute findings. TECHNICAL DOCUMENTATION: JOB ID: [id number] [employer]- All Rights Reserved
--- NOTE | 2016-12-06 21:46 | ER Document Report ---
ED Fall - General Chief Complaint: Fall Injury Stated Complaint: FALL/RIGHT SHOULDER,BACK, KNEE PAIN Time Seen by Provider: 12/06/16 21:01 Mode of Arrival: Wheelchair Information source: Patient Notes: 81-year-old female presents to ED for complaint of pain to bilateral knees and right shoulder. She states she was going into the treatment kitchen when she tripped and fell landing on her knees trying to catch herself with her right shoulder injuring her shoulder. She denies any loss of consciousness. TRAVEL OUTSIDE OF THE [place] IN LAST 30 DAYS: No - HPI Occurred: This evening Where: Home, Indoors Context: Tripped Associated symptoms: None Location of injury/pain: Knee - bilateral, Shoulder - Right Quality of pain: Achy, Burning, Sharp Severity: Severe Pain Level: 5 - Related data Allergies/Adverse Reactions: codeine [Codeine] Allergy (Verified 12/06/16 20:25) Penicillins Allergy (Verified 12/06/16 20:25) Past Medical History - General Information source: Patient - Social History Smoking Status: Never Smoker Cigarette use (# per day): No Chew tobacco use (# tins/day): No Smoking Education Provided: No Frequency of alcohol use: None Drug Abuse: None Lives with: Alone Family History: Arthritis, CAD, CVA, DM, Hyperlipidemia, Hypertension, Malignancy Patient has suicidal ideation: No Patient has homicidal ideation: No - Past Medical History Cardiac Medical History: Reports: Hx Coronary Artery Disease, Hx Hypercholesterolemia, Hx Hypertension Pulmonary Medical History: Reports: Hx Bronchitis, Hx Pneumonia EENT Medical History: Reports: None Neurological Medical History: Reports: Hx Migraine Endocrine Medical History: Reports: Hx Diabetes Mellitus Type 2 - diet controlled Renal/ Medical History: Reports: None Malignancy Medical History: Reports: None GI Medical History: Reports: Hx Gastroesophageal Reflux Disease Musculoskeltal Medical History: Reports Hx Musculoskeletal Deformity, Reports Hx Musculoskeletal Trauma Skin Medical History: Reports None Psychiatric Medical History: Reports: Hx Depression Traumatic Medical History: Reports: None Past Surgical History: Reports: Hx Appendectomy, Hx Cardiac Catheterization, Hx Cholecystectomy, Hx Coronary Stent - 2 stents mar 2012, Hx Hysterectomy, Hx Orthopedic Surgery - bilat knee replacement, back surgery 6, Hx Tonsillectomy - Immunizations Immunizations up to date: Yes Hx Diphtheria, Pertussis, Tetanus Vaccination: Yes - 2017 Hx Pneumococcal Vaccination: 12/01/11 Review of Systems - Review of Systems Constitutional: No symptoms reported EENT: No symptoms reported Cardiovascular: No symptoms reported Respiratory: No symptoms reported Gastrointestinal: No symptoms reported Genitourinary: No symptoms reported Female Genitourinary: No symptoms reported Musculoskeletal: Joint pain - Pain to right shoulder and bilateral knees, Joint swelling - Bilateral knees Skin: Other - Abrasions and bruises to the knees Hematologic/Lymphatic: No symptoms reported Neurological/Psychological: No symptoms reported -: Yes All other systems reviewed and negative Physical Exam - Vital signs Vitals: Temp Pulse Resp BP Pulse Ox 97.9 F 77 16 189/80 H 98 12/06/16 20:27 12/06/16 20:27 12/06/16 20:27 12/06/16 20:27 12/06/16 20:27 Interpretation: Normal - General General appearance: Appears well, Alert - HEENT Head: Normocephalic, Atraumatic Eyes: Normal Pupils: PERRL - Respiratory Respiratory status: No respiratory distress Chest status: Nontender Breath sounds: Normal Chest palpation: Normal - Cardiovascular Rhythm: Regular Heart sounds: Normal auscultation Murmur: No - Abdominal Inspection: Normal Distension: No distension Bowel sounds: Normal Tenderness: Nontender Organomegaly: No organomegaly - Back Back: Normal, Nontender - Extremities General upper extremity: Normal inspection, Normal color, Normal temperature General lower extremity: Normal temperature. No: Jared's sign Shoulder: Tender, Limited ROM - Due to pain. No: Abrasion, Deformity, Dislocation, Ecchymosis, Instability, Laceration Knee: Tender, Abrasion, Ecchymosis, Joint effusion, Pain with ROM, Patellar tendon intact, Tender joint line. No: Deformity, Dislocation, Drawer's test instability, Instability, Laceration, Laxity with valgus stress, Laxity with varus stress, Popliteal fossa tender Calf: Normal, Nontender Ankle: Normal, Nontender Foot: Normal, Nontender - Neurological Neuro grossly intact: Yes Cognition: Normal Orientation: AAOx4 Maria Luisa Coma Scale Eye Opening: Spontaneous Maria Luisa Coma Scale Verbal: Oriented [place] Coma Scale Motor: Obeys Commands [place] Coma Scale Total: 15 Speech: Normal Motor strength normal: LUE, RUE, LLE, RLE Sensory: Normal - Psychological Associated symptoms: Normal affect, Normal mood - Skin Skin Temperature: Warm Skin Moisture: Dry Skin Color: Normal Location of irregularity: Extremities - abrasions to both knees Irregularity with: Swelling, Tenderness Course - Re-evaluation Re-evalutation: 12/06/16 22:01 Discussed x-rays with patient and family. Patient given written reports of the x-rays to follow-up with orthopedics. Patient given instructions on elevation and ice for the knees and shoulders sling for her shoulder. Patient given instructions on gentle shoulder exercises and only to do those that do not hurt. Patient's family given instructions to please have patient stay with them tonight and until she is a little better able to move around have someone to check on her. - Vital Signs Vital signs: Temp Pulse Resp BP Pulse Ox 98.0 F 72 16 165/78 H 98 12/06/16 22:18 12/06/16 22:18 12/06/16 22:18 12/06/16 22:18 12/06/16 22:18 - Diagnostic Test Radiology reviewed: Image reviewed, Reports reviewed Procedures - Immobilization Right Shoulder Immobilizer type: Sling Performed by: [facility] Post-Proc Neuro Vasc Exam: Normal Alignment checked and good: Yes Discharge - Discharge Clinical Impression: Abrasion of both knees, contusion bilateral knee Fall Qualifiers: Encounter type: initial encounter Qualified Code(s): W19.XXXA - Unspecified fall, initial encounter Right shoulder injury Qualifiers: Encounter type: initial encounter Qualified Code(s): S49.91XA - Unspecified injury of right shoulder and upper arm, initial encounter Condition: Stable Disposition: HOME, SELF-CARE Instructions: Exercise Program for the Shoulder ([facility]) Additional Instructions: CONTUSION: Your injury has resulted in a contusion -- a crushing of the deep tissues. No injury to important structures was detected during the physician's exam. Contusions vary in the amount of pain they cause, and in the length of time required for healing. Typically, the area will become bruised, and will remain painful to touch for two or three weeks. However, most patients are back to working and playing within a few days. After the initial period of rest and cold-packs, your symptoms (together with the doctor's recommendations) will determine how rapidly you can get back to full activity. Usually this means "do what feels okay, but don't do things that hurt." If re-examination was recommended, it's important to follow up as instructed. Call the doctor or return any time if pain increases, if swelling becomes severe, if you develop numbness or weakness in an injured extremity, or if any other alarming symptoms occur. ABRASIONS: An abrasion is a scraping injury of the skin. Some scarring may result. The seriousness of an abrasion is not always obvious at first. Hidden tissue damage may be present and infection may occur despite proper care. Complete healing may take from ten days to as long as a month. The healing time depends on the depth of the abrasion, and on the amount of crushing of underlying tissues from the injury. Keep the wound and dressing clean. Do not shower or bathe the area until okayed by the doctor. If the dressing gets wet, remove it and blot the wound dry, then reapply a clean dressing. Dressings should be changed every day. Sunscreen should be used for six months after the skin is healed. If any signs of infection occur (swelling, redness, increasing tenderness, red streaks, profuse purulent drainage from the abrasion, tender lumps in the armpit or groin above the abrasion, or fever), see the doctor immediately. Shoulder Injury You have injured your shoulder. This usually results from stretching or tearing of the tendons during trauma. Time and protection are required in order to heal properly. Many injuries are quite disabling, and should be taken seriously. Initial treatment includes cold packs and a sling to rest the shoulder. The physician has assessed the seriousness of your injury, and has outlined a treatment plan. Understand that this treatment may change, depending on how you progress. If a re-examination was recommended, it is important that you follow up as instructed. Some shoulder injuries (such as partial tear of the rotator cuff) are only suspected after you've failed to improve. Call us if there's severe pain, numbness, or loss of function Sling to be Used You are to use a sling when ambulating. This is to rest the area, and to prevent it from hanging downward. Ice can be placed inside the sling over the injured area. USE OF TYLENOL (ACETAMINOPHEN): Acetaminophen may be taken for pain relief or fever control. It's much safer than aspirin, offering a wider range of "safe" dosages. It is safe during . Some brand names are Tylenol, Panadol, Datril, Anacin 3, Tempra, and Liquiprin. Acetaminophen can be repeated every four hours. The following are maximum recommended dosages: WEIGHT Dose Drops Elixir Chewable( 80mg) (LBS.) drprs=droppers tsp=teaspoon 6 40 mg 0.4 ml (1/2) 6-11 80 mg 0.8 ml (full) tsp 1 tab 12-16 120 mg 1 1/2 drprs 3/4 tsp 1 1/2 tabs 17-23 160 mg 2 drprs 1 tsp 2 tabs 24-30 240 mg 3 drprs 1 1/2 tsp 3 tabs 30-35 320 mg 2 tsp 4 tabs 36-41 360 mg 2 1/4 tsp 4 1/2 tabs 42-47 400 mg 2 1/2 tsp 5 tabs 48-53 480 mg 3 tsp 6 tabs 54-59 520 mg 3 1/4 tsp 6 1/2 tabs 60-64 560 mg 3 1/2 tsp 7 tabs 65-70 600 mg 3 3/4 tsp 7 1/2 tabs 71-76 640 mg 4 tsp 8 tabs 77-82 720 mg 4 1/2 tsp 9 tabs 83-88 800 mg 5 tsp 10 tabs >89 pounds or adults 650 mg to 900 mg Acetaminophen can be repeated every four hours. Maximum dose not to exceed 4000 mg a day. These maximum recommended dosages are slightly higher than the dosages written on the product container, but these dosages are very safe and below the toxic dosage for acetaminophen. ICE & ELEVATION: Apply ice packs frequently against the painful area. Many different schedules are recommended, such as "20 minutes on, 20 minutes off" or "one hour ice, two hours rest." If you need to work, you may need to go longer between ice treatments. You should plan to have the area ice packed AT LEAST one- fourth of the time. The ice should be applied over the wrap, tape, or splint, or over a layer of cloth -- not directly against the skin. Some ice bags have a built-in cloth and can be put directly on the skin. Your injured part should be elevated as much as possible over the next 48 hours. Try to keep the injury above the level of the heart. Avoid use of the injured area. Elevation and rest will decrease the swelling. FOLLOW-UP CARE: If you have been referred to a physician for follow-up care, call the physician s office for an appointment as you were instructed or within the next two days. If you experience worsening or a significant change in your symptoms, notify the physician immediately or return to the Emergency Department at any time for re-evaluation. Forms: Elevated Blood Pressure Referrals: LAURA SAXENA MD [ACTIVE STAFF] - Follow up as needed
[2016-12-06 22:19] VITALS: BP 165/78
== END 2016-12-06 22:19 | disposition home or self-care (01) ==
LOC: ER 20:20
DX: S80.212A Abrasion, left knee, initial encounter (principal); S80.211A Abrasion, right knee, initial encounter; S49.91XA Unspecified injury of right shoulder and upper arm, initial encounter; W17.89XA Other fall from one level to another, initial encounter; Y92.000 Kitchen of unspecified non-institutional (private) residence as the place of occurrence of the external cause; E78.00 Pure hypercholesterolemia, unspecified; I25.10 Atherosclerotic heart disease of native coronary artery without angina pectoris; E11.9 Type 2 diabetes mellitus without complications; K21.9 Gastro-esophageal reflux disease without esophagitis; I10 Essential (primary) hypertension; Z88.6 Allergy status to analgesic agent; Z88.0 Allergy status to penicillin; Z90.49 Acquired absence of other specified parts of digestive tract; Z90.710 Acquired absence of both cervix and uterus
CPT/HCPCS: 99283; 73562; 73564; 73030; A9270

== ENCOUNTER 2016-12-15 20:23 | Observation (INO) | payer MEDICARE ==
[2016-12-15] MEDS ORDERED: ASPIRIN 81 MG TABLET, CHEWABLE PO ONE (20:26)
--- NOTE | 2016-12-15 20:47 | ER Document Report ---
ED Medical Screen (RME) - General Chief Complaint: Chest Pain Stated Complaint: CHEST PAIN Time Seen by Provider: 12/15/16 20:46 Notes: Patient presents with chest pain. She states the chest pain started about an hour ago but is not currently present. She states it is just brief episodes of pain. She states she only takes one medicine daily but does not know what this medicine is. She states she does have a history of coronary artery disease and has 2 stents which were placed approximately 3 years ago. She denies any known history of pulmonary embolisms or blood clots. She states she does feel slightly short of breath. No recent cough cold or congestion. TRAVEL OUTSIDE OF THE [place] IN LAST 30 DAYS: No - Related Data Allergies/Adverse Reactions: codeine [Codeine] Allergy (Verified 12/06/16 20:25) Penicillins Allergy (Verified 12/06/16 20:25) Past Medical History - Social History Chew tobacco use (# tins/day): No Frequency of alcohol use: None Drug Abuse: None - Past Medical History Cardiac Medical History: Reports: Hx Coronary Artery Disease, Hx Hypercholesterolemia, Hx Hypertension Pulmonary Medical History: Reports: Hx Bronchitis, Hx Pneumonia Neurological Medical History: Reports: Hx Migraine Endocrine Medical History: Reports: Hx Diabetes Mellitus Type 2 - diet controlled Renal/ Medical History: Denies: Hx Peritoneal Dialysis Malignancy Medical History: Denies: Hx Leukemia GI Medical History: Reports: Hx Gastroesophageal Reflux Disease. Denies: Hx Hepatitis, Hx Hiatal Hernia, Hx Ulcer Musculoskeltal Medical History: Denies Hx Arthritis, Reports Hx Musculoskeletal Deformity, Reports Hx Musculoskeletal Trauma Psychiatric Medical History: Reports: Hx Depression Infectious Medical History: Denies: Hx Hepatitis, Hx HIV Past Surgical History: Reports: Hx Appendectomy, Hx Cardiac Catheterization - stent x 2, Hx Cholecystectomy, Hx Coronary Stent - 2 stents mar 2012, Hx Hysterectomy, Hx Open Heart Surgery - STENTS, Hx Orthopedic Surgery - bilat knee replacement, back surgery 6, Hx Tonsillectomy. Denies: Hx Mastectomy, Hx Pacemaker - Immunizations Immunizations up to date: Yes Hx Diphtheria, Pertussis, Tetanus Vaccination: No Physical Exam - Vital signs Vitals: Temp Pulse Resp BP Pulse Ox 97.7 F 91 18 208/78 H 96 12/15/16 20:32 12/15/16 20:32 12/15/16 20:32 12/15/16 20:32 12/15/16 20:32 Course - Vital Signs Vital signs: Temp Pulse Resp BP Pulse Ox 97.7 F 91 18 208/78 H 96 12/15/16 20:32 12/15/16 20:32 12/15/16 20:32 12/15/16 20:32 12/15/16 20:32
--- NOTE | 2016-12-15 21:23 | RADIOLOGY REPORT (SQ) ---
EXAM DESCRIPTION: CHEST SINGLE VIEW COMPLETED DATE/TIME: 12/15/2016 9:16 pm REASON FOR STUDY: chest pain COMPARISON: 06/26/2016 NUMBER OF VIEWS: One view. TECHNIQUE: Single frontal radiographic view of the chest acquired. LIMITATIONS: None. FINDINGS: LUNGS AND PLEURA: No opacities, masses or pneumothorax. No pleural effusion. MEDIASTINUM AND HILAR STRUCTURES: No masses. Contour normal. HEART AND VASCULAR STRUCTURES: Heart enlarged without failure. Normal vasculature. BONES: No acute findings. HARDWARE: None in the chest. OTHER: No other significant finding. IMPRESSION: HEART ENLARGED WITHOUT FAILURE. NO OTHER SIGNIFICANT RADIOGRAPHIC FINDING IN THE CHEST. TECHNICAL DOCUMENTATION: JOB ID: [id number] [employer]- All Rights Reserved
[2016-12-15 21:41] LABS: ABSOLUTE EOSINOPHILS # (AUTO) 0.1 10^3/uL (0.0-0.6); ABSOLUTE LYMPHOCYTES (AUTO) 1.2 10^3/uL (0.5-4.7); ABSOLUTE MONOCYTES (AUTO) 0.5 10^3/uL (0.1-1.4); BASOPHILS % (AUTO) 0.7 % (0-2); EOSINOPHILS % (AUTO) 2.2 % (0-6); HEMATOCRIT 35.5 % (36.0-47.0); HEMOGLOBIN 12.4 g/dL (12.0-15.5); HGB HCT DIFFERENCE 1.7; LYMPHOCYTES % (AUTO) 24.9 % (13-45); MEAN CORPUSCULAR HEMOGLOBIN 31.6 pg (27.0-33.4); MEAN CORPUSCULAR HGB CONC 34.8 g/dL (32.0-36.0); MEAN CORPUSCULAR VOLUME 91 fl (80-97); MONOCYTES % (AUTO) 11.3 % (3-13); RED BLOOD COUNT 3.91 10^6/uL (3.72-5.28); RED CELL DISTRIBUTION WIDTH 13.7 % (11.5-14.0); SEGMENTED NEUTROPHILS % (AUTO) 60.9 % (42-78); WHITE BLOOD COUNT 4.9 10^3/uL (4.0-10.5)
[2016-12-15 21:45] LABS: ALANINE AMINOTRANSFERASE 48 U/L (9-52); ALBUMIN 4.3 g/dL (3.5-5.0); ALKALINE PHOSPHATASE 111 U/L (38-126); ANION GAP 13 (5-19); ASPARTATE AMINO TRANSFERASE 36 U/L (14-36); BILIRUBIN,DIRECT 0.4 mg/dL (0.0-0.4); BILIRUBIN,TOTAL 0.5 mg/dL (0.2-1.3); BLOOD UREA NITROGEN 30 mg/dL (7-20); CALCIUM 10.2 mg/dL (8.4-10.2); CARBON DIOXIDE 19 mmol/L (22-30); CHLORIDE 110 mmol/L (98-107); CREATINE KINASE 309 U/L (30-135); CREATININE RESULT 1.21 mg/dL (0.52-1.25); GLUCOSE 220 mg/dL (75-110); POTASSIUM 4.1 mmol/L (3.6-5.0); SODIUM 142.1 mmol/L (137-145); TOTAL PROTEIN 6.6 g/dL (6.3-8.2)
[2016-12-15 21:59] LABS: CREATINE KINASE MB 1.98 ng/mL (<4.55)
[2016-12-15 22:00] LABS: TROPONIN I < 0.012 ng/mL
--- NOTE | 2016-12-15 22:05 | ER Document Report ---
ED Cardiac - General Chief Complaint: Chest Pain Stated Complaint: CHEST PAIN Time Seen by Provider: 12/15/16 20:46 Mode of Arrival: Ambulatory Information source: Patient TRAVEL OUTSIDE OF THE [place] IN LAST 30 DAYS: No - HPI Patient complains to provider of: Chest pain Was the onset of pain: Sudden Is the pain a: New problem Chest pain location: Substernal Quality of pain: Achy Associated symptoms: Shortness of breath Exacerbated by: Denies Relieved by: Nothing Notes: Patient is an 81-year-old female presenting to the emergency room today complaining of chest pain that started shortly before arrival in the emergency department, she states she had a couple episodes of sharp fleeting chest pain and continues to have mild achy pain to the left chest, she reports feeling somewhat short of breath, denies any diaphoresis, no cough, cold or congestion, she reports a history of [place] approximately 5 years ago and she received 2 cardiac stents at [facility] in [place], patient reports that she takes a daily aspirin and some other pill that she cannot recall the name of at this time - Related Data Allergies/Adverse Reactions: codeine [Codeine] Allergy (Verified 12/06/16 20:25) Penicillins Allergy (Verified 12/06/16 20:25) Past Medical History - General Information source: Patient - Social History Smoking Status: Never Smoker Chew tobacco use (# tins/day): No Frequency of alcohol use: None Drug Abuse: None Family History: Reviewed & Not Pertinent, Arthritis, CAD, CVA, DM, Hyperlipidemia, Hypertension, Malignancy Patient has suicidal ideation: No Patient has homicidal ideation: No - Past Medical History Cardiac Medical History: Reports: Hx Coronary Artery Disease, Hx Hypercholesterolemia, Hx Hypertension Pulmonary Medical History: Reports: Hx Bronchitis, Hx Pneumonia Neurological Medical History: Reports: Hx Migraine Endocrine Medical History: Reports: Hx Diabetes Mellitus Type 2 - diet controlled Renal/ Medical History: Denies: Hx Peritoneal Dialysis Malignancy Medical History: Denies: Hx Leukemia GI Medical History: Reports: Hx Gastroesophageal Reflux Disease. Denies: Hx Hepatitis, Hx Hiatal Hernia, Hx Ulcer Musculoskeltal Medical History: Denies Hx Arthritis, Reports Hx Musculoskeletal Deformity, Reports Hx Musculoskeletal Trauma Psychiatric Medical History: Reports: Hx Depression Infectious Medical History: Denies: Hx Hepatitis, Hx HIV Past Surgical History: Reports: Hx Appendectomy, Hx Cardiac Catheterization - stent x 2, Hx Cholecystectomy, Hx Coronary Stent - 2 stents mar 2012, Hx Hysterectomy, Hx Open Heart Surgery - STENTS, Hx Orthopedic Surgery - bilat knee replacement, back surgery 6, Hx Tonsillectomy. Denies: Hx Mastectomy, Hx Pacemaker - Immunizations Immunizations up to date: Yes Hx Diphtheria, Pertussis, Tetanus Vaccination: No Hx Pneumococcal Vaccination: 02/24/11 Review of Systems - Review of Systems Constitutional: No symptoms reported EENT: No symptoms reported Cardiovascular: See HPI Respiratory: Short of breath Gastrointestinal: No symptoms reported Genitourinary: No symptoms reported Female Genitourinary: No symptoms reported Musculoskeletal: No symptoms reported Skin: No symptoms reported Hematologic/Lymphatic: No symptoms reported Neurological/Psychological: No symptoms reported -: Yes All other systems reviewed and negative Physical Exam - Vital signs Vitals: Temp Pulse Resp BP Pulse Ox 97.7 F 91 18 208/78 H 96 12/15/16 20:32 12/15/16 20:32 12/15/16 20:32 12/15/16 20:32 12/15/16 20:32 Interpretation: Hypertensive - General General appearance: Appears well, Alert - HEENT Head: Normocephalic, Atraumatic Eyes: Normal Pupils: PERRL - Respiratory Respiratory status: No respiratory distress Chest status: Nontender Breath sounds: Normal Chest palpation: Normal - Cardiovascular Rhythm: Regular Heart sounds: Normal auscultation Murmur: No - Abdominal Inspection: Normal Distension: No distension Bowel sounds: Normal Tenderness: Nontender Organomegaly: No organomegaly - Back Back: Normal, Nontender - Extremities General upper extremity: Normal inspection, Nontender, Normal color, Normal ROM , Normal temperature General lower extremity: Normal inspection, Nontender, Normal color, Normal ROM , Normal temperature, Normal weight bearing. No: Jared's sign - Neurological Neuro grossly intact: Yes Cognition: Normal Orientation: AAOx4 Maria Luisa Coma Scale Eye Opening: Spontaneous [place] Coma Scale Verbal: Oriented Maria Luisa Coma Scale Motor: Obeys Commands Maria Luisa Coma Scale Total: 15 Speech: Normal Motor strength normal: LUE, RUE, LLE, RLE Sensory: Normal - Psychological Associated symptoms: Normal affect, Normal mood - Skin Skin Temperature: Warm Skin Moisture: Dry Skin Color: Normal Course - Re-evaluation Re-evalutation: 12/15/16 23:19 Patient resting comfortably, chest pain-free, stable vital signs with episodes of hypertension, given patient's age and history she was discussed with the hospitalist who agrees to observation admit for further evaluation and treatment , patient is in agreement with this plan as well - Vital Signs Vital signs: Temp Pulse Resp BP Pulse Ox 97.7 F 91 18 208/78 H 98 12/15/16 20:32 12/15/16 20:32 12/15/16 20:32 12/15/16 20:32 12/15/16 21:40 - Laboratory Result Diagrams: 12/15/16 21:05 12/15/16 21:05 Laboratory results interpreted by me: 12/15/16 12/15/16 21:05 21:05 Hct 35.5 L Plt Count 96 L Chloride 110 H Carbon Dioxide 19 L BUN 30 H Est GFR ( Amer) 52 L Est GFR (Non-Af Amer) 43 L Glucose 220 H Creatine Kinase 309 H - Diagnostic Test Radiology reviewed: Image reviewed, Reports reviewed - EKG Interpretation by Me EKG shows normal: Sinus rhythm Rate: Normal Rhythm: NSR - Transfer of Care Care transferred to following provider: Dr. Gonzales Discharge - Discharge Clinical Impression: Chest pain Qualifiers: Chest pain type: unspecified Qualified Code(s): R07.9 - Chest pain, unspecified Condition: Stable Disposition: ADMITTED OBSERVATION Admitting Provider: Hospitalist Unit Admitted: Telemetry
[2016-12-15] MEDS ORDERED: GLUCAGON,HUMAN RECOMB 1 MG INJ IM PRN (22:32)
[2016-12-15] MEDS ORDERED: DEXTROSE 40% GEL 15 GM TUBE PO PRN ×2 (22:32)
[2016-12-15] MEDS ORDERED: DEXTROSE 50%-WATER 25 GM/50 ML DISP.SYRIN IV PRN ×2 (22:32)
[2016-12-15] MEDS ORDERED: ACETAMINOPHEN 325 MG TABLET PO PRN (22:32)
[2016-12-16 00:55] LABS: ANION GAP 13 (5-19); BLOOD UREA NITROGEN 28 mg/dL (7-20); CALCIUM 9.8 mg/dL (8.4-10.2); CARBON DIOXIDE 19 mmol/L (22-30); CHLORIDE 112 mmol/L (98-107); GLUCOSE 181 mg/dL (75-110); POTASSIUM 3.7 mmol/L (3.6-5.0); SODIUM 143.7 mmol/L (137-145)
[2016-12-16] MEDS ORDERED: PROMETHAZINE HCL 25 MG TABLET PO PRN (01:00)
--- NOTE | 2016-12-16 01:15 | PDOC H&P ---
History of Present Illness Admission Date/PCP: 12/15/16 22:21 Primary CARE provider none Cardiology Dr. Hussain Bonner [place] Patient complains of: Chest pain History of Present Illness: TROY COOK is a 81 year old female with underlying coronary artery disease, having undergone stent implant 2 in 2012, with reportedly subsequent cardiac catheterization 2013 revealing medical treatment only, and also reportedly a negative stress test last year, who presents to the emergency room for evaluation of 2 episodes of brief sharp left chest pain without radiation, with subsequent mild aching pain in the left chest, all of which have resolved without recurrence. Patient has been discussed with emergency room physician who evaluated the patient. Was sitting in a recliner with onset of pain. Nothing in particular made the pain worse. She reportedly has been urged in the past to take sublingual nitroglycerin when she has this chest pain, but she does not done this. Perhaps mild associated shortness of breath, but no sweating nausea or vomiting. No history of pulmonary embolus or DVT. No recent long trip with prolonged inactivity, or unusual lower extremity swelling or tenderness. No history of atrial fibrillation or atrial flutter. Hospitalized on our service June 26 and of this year with final diagnoses including chest pain. History and physical and discharge summary have been reviewed. Admitted to our service October 23 of last year with precordial chest pain. History and physical has been reviewed. Dictation via voice recognition software. Laboratory results are listed in [employer] and are reviewed. X-ray summary results are listed below, with full report(s) reviewed. . EKG reviewed and compared to prior tracing from 10 October this year. Social history/personal habits: . Lives alone. Has children. No use of alcohol tobacco or illicit drugs. Allergies/adverse reactions are listed in [employer] and are reviewed. No problems with Keflex. Home medications initially autopopulated into [employer] may not accurately reflect patient's true medications, dosages, and/or frequencies. technical sales associate has reconciled medications. REVIEW OF SYSTEMS: Constitutional: No fever or chills. Eyes: Wears glasses. ENT: No swallowing problems or complaints. Partial hearing loss. Pulmonary: See history and present illness. Cardiovascular: See history and present illness. Gastrointestinal: No current complaints, including nausea or vomiting. Skin: No current complaints, including rashes. Hematologic: Easy bruising. Neurologic: No current complaints, including numbness or tingling. Musculoskeletal: Joint pain from arthritis. Psychiatric: Mild anxiety and depression. Denies suicidal or homicidal ideation. Endocrine: No current complaints, including polyuria. Genitourinary: No current complaints, including dysuria. PHYSICAL EXAMINATION: Emergency room nurse David is present. 5 feet 2 inches tall. 58.97 kg. BMI 23.8 kg/m. Blood pressure 156/88. Pulse 75 and regular. 100% saturation on room air. Respirations are 19 and unlabored. Temperature 97.7. Thin well-developed elderly female appearing approximately her stated age. Pleasant awake alert and cooperative. Somewhat anxious, although no marisol agitation. Quite talkative. Skin is warm and dry. No grossly obvious evidence of rash in areas of skin examined. No subcutaneous nodules palpated. ENT: Hearing grossly normal to normal conversation. Tongue midline on protrusion pink and slightly moist. Eyes: No scleral icterus. Pupils equal and reactive to light at 4 mm. [place] conjunctivae. Neck is supple and nontender to gentle active range of motion and palpation. Midline trachea. No palpable thyroid nodule mass enlargement or tenderness. Lymphatic: No palpable cervical or clavicular nodes. Neck and lymphatic exams limited by patient body habitus. Psychiatric: Reasonable insight into acute and chronic medical issues. Oriented to time location and why here. Lungs: Auscultation reveals clear and equal breath sounds bilaterally. No use of accessory respiratory muscles. Cardiovascular: Heart regular rate and rhythm, without gallop murmur or rub. No carotid or abdominal aortic bruits. Very mild bilateral slightly pitting ankle and pedal edema. Faintly palpable dorsalis pedis pulses. Abdomen:soft slightly distended nontender with positive bowel sounds. Unable to adequately evaluate abdomen for masses or organomegaly due to distention. Compression of her epigastrium does not reproduce her chest discomfort, but sternal compression does. Extremities: Feet are warm and dry. No calf tenderness to compression. No grossly obvious visual evidence of calf swelling. Gentle manipulation of lower extremities fails to reveal any obvious evidence of injury or instability to knees hips or ankles. Neurologic: Moves upper extremities grossly normally. Patellar reflexes absent. Absent Babinski. Light touch is intact at feet. Dorsiflexion and plantarflexion of feet 5 / 5 and symmetric. Past Medical History Cardiac Medical History: Reports: Coronary Artery Disease, Hyperlipidema, Hypertension Denies: Atrial Fibrillation, DVT, Pulmonary Embolism Pulmonary Medical History: Reports: Bronchitis, Pneumonia Denies: Asthma, Chronic Obstructive Pulmonary Disease (COPD) EENT Medical History: Reports: Eyes - Wears glasses Denies: Ears, Throat Neurological Medical History: Reports: Migraine Endocrine Medical History: Reports: Diabetes Mellitus Type 2 - diet controlled Denies: Diabetes Mellitus Type 1, Hyperthyroidism, Hypothyroidism Renal/ Medical History: Reports: Chronic Kidney Disease, Other - Stage III chronic kidney disease GI Medical History: Reports: Gastroesophageal Reflux Disease Denies: Cirrhosis, Hepatitis, Hiatal Hernia, Peptic Ulcer Disease Musculoskeltal Medical History: Reports: Arthritis Skin Medical History: Reports: None Psychiatric Medical History: Reports: Depression, General Anxiety Disorder Denies: Alcohol Dependency, Substance Abuse, Tobacco Dependency Hematology: Reports: Anemia Infectious Medical History: Denies: Hepatitis B, Hepatitis C, HIV Past Surgical History Past Surgical History: Reports: Appendectomy, Cholecystectomy, Coronary Stent - 2 stents mar 2012, Hysterectomy, Orthopedic Surgery - bilat knee replacement, back surgery 6, Tonsillectomy Social History Information Source: Patient, Emergency Med Personnel, [facility] Records Lives with: Alone Smoking Status: Never Smoker Frequency of Alcohol Use: None Hx Recreational Drug Use: No Drugs: None Hx Prescription Drug Abuse: No - Advance Directive Resuscitation Status: Full Code Surrogate healthcare decision maker:: Her son Family History Family History: Reviewed & Not Pertinent, Arthritis, CAD, CVA, DM, Hyperlipidemia, Hypertension, Malignancy Parental Family History Reviewed: Yes - Father of [place] at 42. Mother at 89 of leukemia. Children Family History Reviewed: Yes - Daughter afflicted with cancer. Sibling(s) Family History Reviewed.: Yes - Early coronary artery disease in brother Medication/Allergy Home Medications: RX: Aspirin [Ecotrin 81 mg EC Tablet] 81 mg PO QAM 06/26/16 RX: Atorvastatin Calcium [Lipitor 40 mg Tablet] 40 mg PO QHS 06/26/16 RX: Clopidogrel Bisulfate [Plavix 75 mg Tablet] 75 mg PO QAM 06/26/16 RX: Fenofibrate Nanocrystallized [Fenofibrate] 145 mg PO QHS 06/26/16 RX: Pantoprazole Sodium [Protonix] 40 mg PO QAM 06/26/16 RX: Amlodipine Besylate [Norvasc 10 mg Tablet] 10 mg PO DAILY #30 tablet RX: Atenolol [Tenormin 100 mg Tablet] 100 mg PO QAM #30 tablet 12/17/16 RX: Glimepiride [Amaryl 4 mg Tablet] 4 mg PO BID #60 tablet 12/17/16 RX: Hydrochlorothiazide [Hydrodiuril 25 mg Tablet] 25 mg PO QAM #30 tablet 12/17 RX: Lisinopril [Zestril] 40 mg PO DAILY #30 tablet 12/17/16 Allergies/Adverse Reactions: codeine [Codeine] Allergy (Verified 12/06/16 20:25) Penicillins Allergy (Verified 12/06/16 20:25) Physical Exam Vital Signs: Temp Pulse Resp BP Pulse Ox 97.7 F 91 18 208/78 H 98 12/15/16 20:32 12/15/16 20:32 12/15/16 20:32 12/15/16 20:32 12/15/16 21:40 Results Laboratory Results: 12/16/16 00:20 12/16/16 00:20 Sodium 143.7 Potassium 3.7 Chloride 112 H Carbon Dioxide 19 L Anion Gap 13 BUN 28 H Creatinine 1.10 Est GFR ( Amer) 58 L Est GFR (Non-Af Amer) 48 L Glucose 181 H Calcium 9.8 Impressions: Chest X-Ray 12/15/16 20:26 IMPRESSION: HEART ENLARGED WITHOUT FAILURE. NO OTHER SIGNIFICANT RADIOGRAPHIC FINDING IN THE CHEST. Assessment & Plan - Diagnosis (1) Precordial chest pain Is this a current diagnosis for this admission?: Yes Plan: Suspect this is musculoskeletal in origin, but given her known underlying coronary artery disease, Patient will be placed in observation bed under chest pain protocol. Patient understands to notify staff should chest pain recur. Serial troponin . Repeat EKG. lipid panel. I have strongly encouraged patient not to get out of bed without notifying staff , to avoid a fall with injury. Knee high SCDs for DVT prophylaxis. Will forego Lovenox or heparin, given her underlying thrombocytopenia. Impression and plans were discussed with patient, who concurs. Time spent in evaluation and management of patient: 70 minutes. (2) Diabetes mellitus type 2 in nonobese Is this a current diagnosis for this admission?: Yes Plan: Diabetic cardiac prerenal diet. Accu-Cheks with appropriate sliding scale coverage. Resume home medications as appropriate once these have been determined and reviewed. (3) Thrombocytopenia Is this a current diagnosis for this admission?: Yes Plan: Stable (4) Stented coronary artery Is this a current diagnosis for this admission?: Yes (5) CKD (chronic kidney disease), stage III Is this a current diagnosis for this admission?: No (6) Hyperlipidemia Qualifiers: Hyperlipidemia type: unspecified Qualified Code(s): E78.5 - Hyperlipidemia , unspecified Is this a current diagnosis for this admission?: Yes Plan: Lipid panel. Resume home medications as appropriate once these have been determined and reviewed. (7) Hypertension Qualifiers: Hypertension type: essential hypertension Qualified Code(s): I10 - Essential (primary) hypertension Is this a current diagnosis for this admission?: Yes Plan: Resume home medications as appropriate once these have been determined and reviewed. - Time Time Spent: 50 to 70 Minutes Medications reviewed and adjusted accordingly: Yes Anticipated discharge: Home Within: within 24 hours
--- NOTE | 2016-12-16 07:17 | EKG REPORT ---
SEVERITY:- ABNORMAL ECG - SINUS RHYTHM LEFT VENTRICULAR HYPERTROPHY BORDERLINE PROLONGED QT INTERVAL NONSPECIFIC ST-T CHANGES- INFERIOR LEADS : Confirmed by: Andi Faria MD 16-Dec-2016 07:17:00
[2016-12-16] MEDS: AMLODIPINE BESYLATE 5 MG TABLET PO SCH (07:58)
[2016-12-16] MEDS: GLIMEPIRIDE 4 MG TABLET PO SCH ×2 (07:59→17:29)
[2016-12-16] MEDS: ASPIRIN 81 MG TABLET, ENT COATED PO SCH (07:59)
[2016-12-16] MEDS: HYDROCHLOROTHIAZIDE 25 MG TABLET PO SCH (08:00)
[2016-12-16] MEDS: CLOPIDOGREL BISULFATE 75 MG TABLET PO SCH (08:00)
[2016-12-16] MEDS: ATENOLOL 50 MG TABLET PO SCH (08:00)
[2016-12-16] MEDS: LISINOPRIL 10 MG TABLET PO SCH (08:01)
[2016-12-16 08:06] LABS: CHOLESTEROL 208.38 mg/dL (0-200); Direct HDL 39 mg/dL (>40); TRIGLYCERIDES 406 mg/dL (<150)
[2016-12-16 08:17] LABS: DIRECT LDL 78 mg/dL (<100)
[2016-12-16] MEDS: DOCUSATE SODIUM 100 MG CAPSULE PO SCH ×2 (09:05→17:28)
[2016-12-16] MEDS: INSULIN LISPRO 100 UNIT/ML 3 ML VIAL SUBCUT PRN ×3 (09:06→21:35)
--- NOTE | 2016-12-16 10:56 | PDOC PROGRESS REPORT ---
Subjective Progress Note for:: 12/16/16 Subjective:: Pt states that she has not had chest pain since 6:30 am this morning. Physical Exam Vital Signs: Temp Pulse Resp BP Pulse Ox 97.5 F 67 18 173/73 H 96 12/16/16 07:54 12/16/16 07:54 12/16/16 07:54 12/16/16 07:54 12/16/16 07:54 Intake & Output 12/15/16 12/16/16 12/17/16 06:59 06:59 06:59 Weight 82.9 kg General appearance: PRESENT: no acute distress, well-developed, well-nourished Head exam: PRESENT: atraumatic, normocephalic Eye exam: PRESENT: conjunctiva pink, EOMI. ABSENT: scleral icterus Ear exam: PRESENT: normal external ear exam Mouth exam: PRESENT: moist, tongue midline Neck exam: ABSENT: carotid bruit, JVD, lymphadenopathy, thyromegaly Respiratory exam: PRESENT: clear to auscultation kiko. ABSENT: rales, rhonchi, wheezes Cardiovascular exam: PRESENT: RRR. ABSENT: diastolic murmur, rubs, systolic murmur Pulses: PRESENT: normal dorsalis pedis pul Vascular exam: PRESENT: normal capillary refill GI/Abdominal exam: PRESENT: normal bowel sounds, soft. ABSENT: distended, guarding, mass, organolmegaly, rebound, tenderness Rectal exam: PRESENT: deferred Extremities exam: PRESENT: full ROM. ABSENT: calf tenderness, clubbing, pedal edema Musculoskeletal exam: PRESENT: tenderness - + Left chest wall tenderness Neurological exam: PRESENT: alert, awake, oriented to person, oriented to place , oriented to time, oriented to situation, CN II-XII grossly intact. ABSENT: motor sensory deficit Psychiatric exam: PRESENT: appropriate affect, normal mood. ABSENT: homicidal ideation, suicidal ideation Skin exam: PRESENT: dry, intact, warm. ABSENT: cyanosis, rash Results Laboratory Results: 12/16/16 07:36 Triglycerides 406 H Cholesterol 208.38 H LDL Cholesterol Direct 78 VLDL Cholesterol UNABLE TO CALCULATE HDL Cholesterol 39 L 12/16/16 07:36 Troponin I 0.012 Impressions: Chest X-Ray 12/15/16 20:26 IMPRESSION: HEART ENLARGED WITHOUT FAILURE. NO OTHER SIGNIFICANT RADIOGRAPHIC FINDING IN THE CHEST. Assessment & Plan - Diagnosis (1) Precordial chest pain Is this a current diagnosis for this admission?: Yes Plan: Troponins neg X 2. Will order Nuclear stress test for tomorrow. Will make pt NPO. (2) Musculoskeletal chest pain Is this a current diagnosis for this admission?: Yes Plan: Pt with chest wall tenderness to palpation. Supportive care. (3) Diabetes mellitus type 2 in nonobese Is this a current diagnosis for this admission?: Yes Plan: Will check HgbA1C. Will continue SSI. (4) Coronary artery disease Qualifiers: Coronary Disease-Associated Artery/Lesion type: [place] artery [place] vs. transplanted heart: [place]ski heart Associated angina: without angina Qualified Code(s): I25.10 - Atherosclerotic heart disease of [place] coronary artery without angina pectoris Is this a current diagnosis for this admission?: Yes Plan: Will order nuclear stress test in a.m. (5) Hyperlipidemia Qualifiers: Hyperlipidemia type: unspecified Qualified Code(s): E78.5 - Hyperlipidemia , unspecified Is this a current diagnosis for this admission?: Yes Plan: Will continue statin. Will check HbgA1C. Hyperglycemia most likely playing role in elevated Triglycerides. (6) Hypertension Qualifiers: Hypertension type: essential hypertension Qualified Code(s): I10 - Essential (primary) hypertension Is this a current diagnosis for this admission?: Yes Plan: Will add hydralazine. - Time Time Spent with patient: 15-24 minutes
[2016-12-16] MEDS ORDERED: GLUCAGON,HUMAN RECOMB 1 MG INJ SUBCUT PRN (11:18)
[2016-12-16] MEDS ORDERED: DEXTROSE 50%-WATER 25 GM/50 ML DISP.SYRIN IV PRN ×2 (11:18)
[2016-12-16] MEDS ORDERED: DEXTROSE 40% GEL 15 GM TUBE PO PRN ×2 (11:18)
--- NOTE | 2016-12-16 19:27 | EKG REPORT ---
SEVERITY:- ABNORMAL ECG - SINUS RHYTHM CONSIDER LEFT VENTRICULAR HYPERTROPHY : Confirmed by: Andi Faria MD 16-Dec-2016 19:27:24
[2016-12-16] MEDS: HYDRALAZINE HCL 25 MG TABLET PO SCH (21:34)
[2016-12-16] MEDS ORDERED: ATORVASTATIN CALCIUM 40 MG TABLET PO SCH (22:00)
--- NOTE | 2016-12-17 11:57 | DRAGON STRESS TEST REPORT ---
INTRAVENOUS LEXISCAN CARDIOLITE STRESS TEST USING SINGLE PHOTON EMMISION COMPUTERIZED TOMOGRAPHIC. DATE OF PROCEDURE: December 17, 2016 INDICATION : Chest pain CARDIAC RISK FACTORS: Diabetes, hypertension, dyslipidemia RESTING EKG: Sinus rhythm with minor nonspecific baseline ST-T wave changes STRESS EKG: No significant changes noted with LexiScan bolus REASON FOR TERMINATION: Protocol. PROCEDURE REPORT: Baseline heart rate 63 beats per minute with blood pressure of 148/66. Patient had no significant complaints. Heart rate at 2 minutes post bolus 78 with a blood pressure of 197/74. 3 minutes post bolus heart rate 78 with blood pressure of 194/75. Discharge blood pressure was 174/71 with heart rate of 66 No significant EKG changes were noted. Patient did complain of some chest tightness, headaches and shortness of breath which resolved post Aminophyllin injection.. Patient injected with Aminophyllin 75 mg at 3 minutes or later after Lexiscan bolus. CONCLUSIONS: Normal EKG and hemodynamic response to IV LexiScan. NUCLEAR DATA: At rest the patient was given 12.21 millicuries of technetium 99 sestamibi injected intravenously. As per protocol rest gated SPECT images were obtained. Subsequently the patient was given intravenous LexiScan at a dose of 0.4 mg in 5 mL intravenously, followed by flush with normal saline. Subsequently the stress dose of 36.4 millicuries of technetium 99 sestamibi was injected intravenously. As per protocol stress gated images were obtained. NUCLEAR INTERPRETATION: Both raw and processed data were used for interpretation. Visual, qualitative, computer-generated quantitative data was used. There was good myocardial uptake of technetium compound. Motion artifact and soft tissue attenuations were noted. Increased visceral uptake was noted. Mild decreased uptake noted in the inferolateral wall, consistent with mild ischemia. However there were no corresponding wall motion abnormalities on gated imaging therefore could also be related in differences in attenuation artifact. No definitive areas of fixed perfusion defect or scars noted. EKG gated imaging showed LV EF at 61 %, rest and stress gated EF similar visually. T. I D. ratio was 0.96. Lung heart ratio noted to be within normal limits 0.34. No significant extracardiac and abnormal radiotracer activities were noted. RV free wall uptake was noted to be WNL. IMPRESSION: Also refer to comments under nuclear interpretation. Also test results needs to be interpreted in the context of pretest probability. 1. Mild ischemia involving inferolateral wall of the left ventricle versus probable attenuation artifact. Clinical correlation requested. 2. There is no definitive scintigraphic evidence of myocardial infarction/scar. 3. EKG gated imaging shows left ventricular ejection fraction of approximately 61 %. 4. Clinical correlation requested as occasionally single vessel disease or balanced ischemia could be missed. In approximately 10% of the cases Lexiscan may not cause adequate vasodilatory stress. RECOMMENDATIONS: Aggressive risk factor modification, medical therapy, could be tried initially but if persistent chest pain, in spite of medical therapy then consider heart catheterization. Clinical correlation with echocardiogram derived ejection fraction. Inability to exercise by itself can lead to increased cardiovascular event risks. Consider cardiology consultation and or follow-up if clinically indicated. I AM AVAILABLE FOR CARDIOLOGY CONSULTATION AND FOLLOWUP IF REQUESTED BY PMD Magalis Reyes M.D., [place] Field Operator loan inspector, Board certified in cardiovascular diseases, Nuclear cardiology, Echocardiography Cardiac CT and cardiac MRI Ph. [phone] ANNMARIE
[2016-12-17] MEDS ORDERED: AMINOPHYLLINE INJ/PF 250 MG/10 ML SDV IV ONE (14:05)
[2016-12-17] MEDS ORDERED: REGADENOSON INJ 0.4 MG/5 ML DISP.SYRIN IV ONE (14:05)
[2016-12-17] MEDS: HYDRALAZINE HCL 25 MG TABLET PO SCH (14:48)
[2016-12-17] MEDS: AMLODIPINE BESYLATE 5 MG TABLET PO SCH (14:56)
[2016-12-17] MEDS: DOCUSATE SODIUM 100 MG CAPSULE PO SCH (14:56)
[2016-12-17] MEDS: ATENOLOL 50 MG TABLET PO SCH (14:56)
[2016-12-17] MEDS: HYDROCHLOROTHIAZIDE 25 MG TABLET PO SCH (14:56)
[2016-12-17] MEDS: GLIMEPIRIDE 4 MG TABLET PO SCH (14:56)
[2016-12-17] MEDS: LISINOPRIL 10 MG TABLET PO SCH (14:56)
[2016-12-17] MEDS: ASPIRIN 81 MG TABLET, ENT COATED PO SCH (14:56)
[2016-12-17] MEDS: CLOPIDOGREL BISULFATE 75 MG TABLET PO SCH (14:56)
[2016-12-17 16:47] VITALS: BP 174/60
--- NOTE | 2016-12-17 17:05 | PDOC DISCHARGE SUMMARY ---
General - Admit/Disc Date/PCP Admission Date/Primary Care Provider: 12/16/16 00:56 Discharge Date: 12/17/16 - Discharge Diagnosis (1) Atypical chest pain Is this a current diagnosis for this admission?: Yes Summary: Nuclear stress test negative. (2) Musculoskeletal chest pain Is this a current diagnosis for this admission?: Yes Summary: Supportive care. (3) Diabetes mellitus type 2 in nonobese Is this a current diagnosis for this admission?: Yes Summary: Will continue pt on Glimepriride. (4) Coronary artery disease Is this a current diagnosis for this admission?: Yes Summary: Nuclear stress test negative. Troponins negative. (5) Hyperlipidemia Is this a current diagnosis for this admission?: Yes Summary: Lipitor (6) Hypertension Is this a current diagnosis for this admission?: Yes Summary: Will increase Norvasc and Lisinopril. Will continue current medication. - Additional Information Resuscitation Status: Full Code Discharge Diet: Cardiac, Diabetic Discharge Activity: Activity As Tolerated Home Medications: Aspirin [Ecotrin 81 mg EC Tablet] 81 mg PO QAM 06/26/16 Atorvastatin Calcium [Lipitor 40 mg Tablet] 40 mg PO QHS 06/26/16 Clopidogrel Bisulfate [Plavix 75 mg Tablet] 75 mg PO QAM 06/26/16 Fenofibrate Nanocrystallized [Fenofibrate] 145 mg PO QHS 06/26/16 Pantoprazole Sodium [Protonix] 40 mg PO QAM 06/26/16 Amlodipine Besylate [Norvasc 10 mg Tablet] 10 mg PO DAILY #30 tablet 12/17/16 Atenolol [Tenormin 100 mg Tablet] 100 mg PO QAM #30 tablet 12/17/16 Glimepiride [Amaryl 4 mg Tablet] 4 mg PO BID #60 tablet 12/17/16 Hydrochlorothiazide [Hydrodiuril 25 mg Tablet] 25 mg PO QAM #30 tablet 12/17/16 Lisinopril [Zestril] 40 mg PO DAILY #30 tablet 12/17/16 History of Present Illness Patient complains of: Chest Pain History of Present Illness: TROY COOK is a 81 year old female with chest pain. Hospital Course Hospital Course: This 81-year-old female that was admitted to the hospital with complaint of pain. Patient reported that she had chest pain approximately 2 days. Patient expressed concern over chest pain because her father at age 47 from a heart attack. Patient also stated that her mother had heart problems as well. During hospitalization patient reported that she was no longer taken diabetic medication. Patient at times even denied having diabetes. Patient on physical exam was found to have reproducible musculoskeletal chest wall pain to palpation. Patient was scheduled for nuclear stress test while in hospital which returned negative. Patient was noted to have elevated blood pressure and the blood pressure medications were adjusted. Patient was instructed to use medications as directed to help lower her risk from having a heart attack. Physical Exam Vital Signs: Temp Pulse Resp BP Pulse Ox 97.7 F 62 16 163/63 H 98 12/17/16 07:29 12/17/16 07:29 12/17/16 07:29 12/17/16 07:29 12/17/16 07:29 Intake & Output 12/16/16 12/17/16 12/18/16 06:59 06:59 06:59 Intake Total 1580 Output Total 1900 Balance -320 Weight 82.9 kg 88.2 kg General appearance: PRESENT: no acute distress, well-developed, well-nourished Head exam: PRESENT: atraumatic, normocephalic Eye exam: PRESENT: conjunctiva pink, EOMI, PERRLA. ABSENT: scleral icterus Ear exam: PRESENT: normal external ear exam Mouth exam: PRESENT: moist, tongue midline Respiratory exam: PRESENT: clear to auscultation kiko. ABSENT: rales, rhonchi, wheezes Cardiovascular exam: PRESENT: RRR. ABSENT: diastolic murmur, rubs, systolic murmur Pulses: PRESENT: normal dorsalis pedis pul Vascular exam: PRESENT: normal capillary refill GI/Abdominal exam: PRESENT: normal bowel sounds, soft. ABSENT: distended, guarding, mass, organolmegaly, rebound, tenderness Rectal exam: PRESENT: deferred Extremities exam: PRESENT: full ROM. ABSENT: calf tenderness, clubbing, pedal edema Neurological exam: PRESENT: alert, awake, oriented to person, oriented to place , oriented to time, oriented to situation, CN II-XII grossly intact. ABSENT: motor sensory deficit Psychiatric exam: PRESENT: appropriate affect, normal mood. ABSENT: homicidal ideation, suicidal ideation Skin exam: PRESENT: dry, warm. ABSENT: cyanosis, rash Results Laboratory Results: 12/16/16 12/16/16 07:36 12:30 Troponin I 0.012 < 0.012 Impressions: Chest X-Ray 12/15/16 20:26 IMPRESSION: HEART ENLARGED WITHOUT FAILURE. NO OTHER SIGNIFICANT RADIOGRAPHIC FINDING IN THE CHEST.
== END 2016-12-17 17:14 | disposition home or self-care (01) ==
LOC: ER 20:23 → EH 22:21 → UNDOADMOB 22:21 → EH 12-16 00:56 → 4S 12-16 02:33
PROVIDERS: ADMIT Family Medicine; ATTEND Family Medicine
DX: R07.89 Other chest pain (principal); I25.10 Atherosclerotic heart disease of native coronary artery without angina pectoris; E78.5 Hyperlipidemia, unspecified; I13.0 Hypertensive heart and chronic kidney disease with heart failure and stage 1 through stage 4 chronic kidney disease, or unspecified chronic kidney disease; N18.3 Chronic kidney disease, stage 3 (moderate); I50.9 Heart failure, unspecified; E11.22 Type 2 diabetes mellitus with diabetic chronic kidney disease; E11.65 Type 2 diabetes mellitus with hyperglycemia; F41.9 Anxiety disorder, unspecified; F32.9 Major depressive disorder, single episode, unspecified; D69.6 Thrombocytopenia, unspecified; I25.2 Old myocardial infarction; Z79.82 Long term (current) use of aspirin; Z79.02 Long term (current) use of antithrombotics/antiplatelets; Z82.49 Family history of ischemic heart disease and other diseases of the circulatory system; Z95.5 Presence of coronary angioplasty implant and graft; Z90.49 Acquired absence of other specified parts of digestive tract; Z80.6 Family history of leukemia
CPT/HCPCS: 93005 ×2; 99285; 36415 ×2; 82553; 82962 ×2; 82550; 85025; 80048; 80053; 84484 ×2; 83036; 80061; 93017; 71010; 78452; 93010 ×2; G0378 ×3; A9500; J2785; A9270 ×12; J3490; J0280; Q9969; J1815

== ENCOUNTER 2017-01-17 23:24 | Emergency (ER) | payer MEDICARE ==
[2017-01-17] MEDS ORDERED: ASPIRIN 81 MG TABLET, CHEWABLE PO ONE (23:30)
[2017-01-17 23:46] VITALS: BP 199/63
[2017-01-18 00:21] LABS: ABSOLUTE EOSINOPHILS # (AUTO) 0.2 10^3/uL (0.0-0.6); ABSOLUTE LYMPHOCYTES (AUTO) 0.8 10^3/uL (0.5-4.7); ABSOLUTE MONOCYTES (AUTO) 0.5 10^3/uL (0.1-1.4); BASOPHILS % (AUTO) 0.8 % (0-2); EOSINOPHILS % (AUTO) 4.5 % (0-6); HEMATOCRIT 33.7 % (36.0-47.0); HEMOGLOBIN 11.9 g/dL (12.0-15.5); LYMPHOCYTES % (AUTO) 17.9 % (13-45); MEAN CORPUSCULAR HEMOGLOBIN 31.9 pg (27.0-33.4); MEAN CORPUSCULAR HGB CONC 35.3 g/dL (32.0-36.0); MEAN CORPUSCULAR VOLUME 90 fl (80-97); MONOCYTES % (AUTO) 11.3 % (3-13); RED BLOOD COUNT 3.73 10^6/uL (3.72-5.28); RED CELL DISTRIBUTION WIDTH 13.5 % (11.5-14.0); SEGMENTED NEUTROPHILS % (AUTO) 65.5 % (42-78); WHITE BLOOD COUNT 4.6 10^3/uL (4.0-10.5)
[2017-01-18 00:40] LABS: ALANINE AMINOTRANSFERASE 33 U/L (9-52); ALKALINE PHOSPHATASE 159 U/L (38-126); ANION GAP 11 (5-19); ASPARTATE AMINO TRANSFERASE 19 U/L (14-36); BILIRUBIN,DIRECT 0.4 mg/dL (0.0-0.4); BILIRUBIN,TOTAL 0.5 mg/dL (0.2-1.3); BLOOD UREA NITROGEN 22 mg/dL (7-20); CARBON DIOXIDE 27 mmol/L (22-30); CHLORIDE 104 mmol/L (98-107); CREATINE KINASE 85 U/L (30-135); GLUCOSE 261 mg/dL (75-110); POTASSIUM 3.7 mmol/L (3.6-5.0); SODIUM 141.9 mmol/L (137-145); TOTAL PROTEIN 6.3 g/dL (6.3-8.2)
--- NOTE | 2017-01-18 00:52 | ER Document Report ---
ED Cardiac - General Information source: Patient TRAVEL OUTSIDE OF THE [place] IN LAST 30 DAYS: No <NELLA SKAGGS - Last Filed: 01/18/17 02:30> <ERNESTINA GODFREY - Last Filed: 01/18/17 03:52> - General Chief Complaint: Chest Pain Stated Complaint: CHEST PAIN Time Seen by Provider: 01/18/17 00:33 Notes: Patient is an 81 year old female presenting to the emergency department complaining of chest pain onset yesterday. Patient took an aspirin to alleviate the pain in which patient states the aspirin did help. Patient no longer has chest pain while in the emergency department. Patient has previously had 2 stents put in, last stent put in Mar 2012. Patient also had a cardiac catheterization in past 6 months which was negative. Secondary to chest pain, patient complains of shortness of breath and nausea. Patient denies diaphoresis. Patient denies smoking, alcohol consumption or illicit drug use. (NELLA SKAGGS) - Related Data Allergies/Adverse Reactions: codeine [Codeine] Allergy (Verified 01/17/17 23:44) Penicillins Allergy (Verified 01/17/17 23:44) Past Medical History - General Information source: Patient - Social History Smoking Status: Never Smoker - no chewing tobacco Frequency of alcohol use: None Drug Abuse: None Family History: Arthritis, CAD, CVA, DM, Hyperlipidemia, Hypertension, Malignancy Patient has suicidal ideation: No Patient has homicidal ideation: No - Past Medical History Cardiac Medical History: Reports: Hx Coronary Artery Disease, Hx Hypercholesterolemia, Hx Hypertension Denies: Hx Atrial Fibrillation, Hx DVT, Hx Pulmonary Embolism Pulmonary Medical History: Reports: Hx Bronchitis, Hx Pneumonia Denies: Hx Asthma, Hx COPD Neurological Medical History: Reports: Hx Migraine Endocrine Medical History: Reports: Hx Diabetes Mellitus Type 2 - diet controlled. Denies: Hx Diabetes Mellitus Type 1, Hx Hyperthyroidism, Hx Hypothyroidism Renal/ Medical History: Denies: Hx Peritoneal Dialysis Malignancy Medical History: Denies: Hx Leukemia GI Medical History: Reports: Hx Gastroesophageal Reflux Disease. Denies: Hx Cirrhosis, Hx Hepatitis, Hx Hiatal Hernia, Hx Ulcer Musculoskeltal Medical History: Reports Hx Arthritis, Reports Hx Musculoskeletal Deformity, Reports Hx Musculoskeletal Trauma Psychiatric Medical History: Reports: Hx Depression Infectious Medical History: Denies: Hx Hepatitis, Hx HIV Past Surgical History: Reports: Hx Appendectomy, Hx Cardiac Catheterization - stent x 2, Hx Cholecystectomy, Hx Coronary Stent - 2 stents mar 2012, Hx Hysterectomy, Hx Tonsillectomy. Denies: Hx Mastectomy, Hx Pacemaker - Immunizations Immunizations up to date: Yes Hx Diphtheria, Pertussis, Tetanus Vaccination: No Hx Pneumococcal Vaccination: 02/24/11 <KERRIE SKAGGSON - Last Filed: 01/18/17 02:30> - Social History Chew tobacco use (# tins/day): No <ERNESTINA GODFREY - Last Filed: 01/18/17 03:52> Review of Systems - Review of Systems Constitutional: See HPI. denies: Diaphoresis EENT: No symptoms reported Cardiovascular: See HPI, Chest pain Respiratory: See HPI, Short of breath Gastrointestinal: No symptoms reported Genitourinary: No symptoms reported Female Genitourinary: No symptoms reported Musculoskeletal: No symptoms reported Skin: No symptoms reported Hematologic/Lymphatic: No symptoms reported Neurological/Psychological: No symptoms reported -: Yes All other systems reviewed and negative <NELLA SKAGGS - Last Filed: 01/18/17 02:30> Physical Exam <NELLA SKAGGS - Last Filed: 01/18/17 02:30> <ERNESTINA GODFREY - Last Filed: 01/18/17 03:52> - Vital signs Vitals: Temp Pulse Resp BP Pulse Ox 97.9 F 73 18 199/63 H 98 01/17/17 23:44 01/17/17 23:44 01/17/17 23:44 01/17/17 23:44 01/17/17 23:44 - Notes Notes: PHYSICAL EXAM GENERAL: Alert, interacts well. No acute distress. HEAD: Normocephalic, atraumatic. EYES: Pupils equal, round, and reactive to light. Extraocular movements intact. ENT: Oral mucosa moist, tongue midline. NECK: Full range of motion. Supple. Trachea midline. LUNGS: Clear to auscultation bilaterally, no wheezes, rales, or rhonchi. No respiratory distress. HEART: Regular rate and rhythm. 2/6 systolic murmur RSUB, no gallops or rubs. ABDOMEN: Soft, non-tender. Non-distended. Bowel sounds present in all 4 quadrants. EXTREMITIES: Moves all 4 extremities spontaneously. No edema, radial and dorsalis pedis pulses 2/4 bilaterally. No cyanosis. NEUROLOGICAL: Alert and oriented x3. Normal speech. PSYCH: Normal affect, normal mood. SKIN: Warm, dry, normal turgor. No rashes or lesions noted. (NELLA SKAGGS) Course - Laboratory Result Diagrams: 01/18/17 00:02 01/18/17 00:02 <NELLA SKAGGS - Last Filed: 01/18/17 02:30> - Laboratory Result Diagrams: 01/18/17 00:02 01/18/17 00:02 <ERNESTINA GODFREY - Last Filed: 01/18/17 03:52> - Re-evaluation Re-evalutation: 01/18/17 02:37 CBC showed mild anemia with hemoglobin 1.9, CMP grossly unremarkable, she is a known diabetic though she is usually diet controlled, her glucose is elevated 261, initial cardiac enzymes are negative, repeat cardiac enzymes are pending, chest x-ray shows no acute process, EKG is nonischemic, 01/18/17 03:50 Repeat cardiac enzymes negative, still chest pain-free, feeling much better. Will be discharged home. Will follow up with office machines teacher as an outpatient. Patient is officially discharged however she will be allowed to stay in a bed in the emergency department until it is light out as she lives by herself and she is afraid to try and get into her house in the dark. (ERNESTINA GODFREY) - Vital Signs Vital signs: Temp Pulse Resp BP Pulse Ox 97.9 F 73 17 199/63 H 96 01/17/17 23:44 01/17/17 23:44 01/18/17 03:00 01/17/17 23:44 01/18/17 03:00 - Laboratory Laboratory results interpreted by me: 01/18/17 01/18/17 00:02 00:02 Hgb 11.9 L Hct 33.7 L Plt Count 71 L BUN 22 H Glucose 261 H Alkaline Phosphatase 159 H - EKG Interpretation by Me Additional EKG results interpreted by me: 01/18/17 02:38 EKG shows sinus rhythm at a rate is 74, normal axis, normal intervals, no ST segment elevation or depression, no T-wave inversions per my interpretation. ( ERNESTINA GODFREY) Discharge <NELLA SKAGGS - Last Filed: 01/18/17 02:30> <ERNESTINA GODFREY - Last Filed: 01/18/17 03:52> - Discharge Clinical Impression: Atypical chest pain, Diabetes mellitus type 2 in nonobese Hypertension Qualifiers: Hypertension type: essential hypertension Qualified Code(s): I10 - Essential ( primary) hypertension Condition: Stable Disposition: HOME, SELF-CARE Additional Instructions: Today we checked your cardiac enzymes twice and they were negative both times. Your EKG did not show any signs of a heart attack. Your chest x-ray did not show any signs of pneumonia. Please return to the emergency department for any new or concerning symptoms. Please call your office machines teacher to discuss the 2 episodes of chest pain that you have had that went away on their own. Scribe Attestation: 01/18/17 03:52 I personally performed the services described in the documentation, reviewed and edited the documentation which was dictated to the scribe in my presence, and it accurately records my words and actions. (ERNESTINA GODFREY)
[2017-01-18 01:00] LABS: TROPONIN I < 0.012 ng/mL
--- NOTE | 2017-01-18 01:23 | RADIOLOGY REPORT (SQ) ---
EXAM DESCRIPTION: CHEST SINGLE VIEW COMPLETED DATE/TIME: 01/18/2017 12:56 am REASON FOR STUDY: chest pain COMPARISON: 12/15/2016. EXAM PARAMETERS: NUMBER OF VIEWS: One view. TECHNIQUE: Single frontal radiographic view of the chest acquired. RADIATION DOSE: NA LIMITATIONS: None. FINDINGS: LUNGS AND PLEURA: No opacities, masses or pneumothorax. No pleural effusion. MEDIASTINUM AND HILAR STRUCTURES: No masses. Contour normal. HEART AND VASCULAR STRUCTURES: Cardiac silhouette within normal limits. BONES: No acute findings. HARDWARE: None in the chest. OTHER: No other significant finding. IMPRESSION: NO ACUTE RADIOGRAPHIC FINDING IN THE CHEST. TECHNICAL DOCUMENTATION: JOB ID: [id number]
[2017-01-18] MEDS ORDERED: LISINOPRIL 10 MG TABLET PO ONE (03:51)
--- NOTE | 2017-01-18 19:45 | EKG REPORT ---
SEVERITY:- ABNORMAL ECG - SINUS RHYTHM PROBABLE LEFT VENTRICULAR HYPERTROPHY : Confirmed by: Magalis Reyes 18-Jan-2017 19:44:46
== END 2017-01-18 06:51 | disposition home or self-care (01) ==
LOC: ER 23:24
DX: R07.89 Other chest pain (principal); D64.9 Anemia, unspecified; E11.9 Type 2 diabetes mellitus without complications; R01.1 Cardiac murmur, unspecified; I10 Essential (primary) hypertension; I25.10 Atherosclerotic heart disease of native coronary artery without angina pectoris; R11.0 Nausea; R06.02 Shortness of breath; Z95.5 Presence of coronary angioplasty implant and graft; Z88.5 Allergy status to narcotic agent; Z88.0 Allergy status to penicillin; Z82.49 Family history of ischemic heart disease and other diseases of the circulatory system; Z87.01 Personal history of pneumonia (recurrent)
CPT/HCPCS: 93005; 99285; 36415; 82553; 82550; 85025; 80053; 84484; 71010; 93010; A9270